=== PATIENT | female | born 1955 | race Caucasian/White ===

== ENCOUNTER 2016-12-10 00:30 | Emergency (ER) | payer OTHER ==
--- NOTE | 2016-12-10 02:54 | PDOC ---
History of Present Illness - History of Present Illness Initial Comments: 12/10/16 03:10 The patient is a 61 year old female, with a significant past medical history of asthma, diabetes, diverticulosis, pancreatitis, hypertension, hypercholesterolemia, anxiety, depression, who presents to the emergency department with intermittent chest pain starting at 8pm last night while she was at rest. The patient reports her pain was radiating from the epigastric region up to her throat and was associated with shortness of breath and nausea, but denies vomiting. The patient states she is compliant with all medications and reports taking one 81 mg aspirin prior to being seen in the ED and denies any pain currently. She denies headache and dizziness. She denies fever, chills, vomit, diaphoresis , diarrhea and constipation. She denies dysuria, frequency, urgency and hematuria. Allergies: NKDA Surgical Hx: TKR PCP - Dr. Duke <Eleanor Urbina - Last Filed: 12/10/16 05:06> - General History Source: Patient <Jeffrey Villalobos - Last Filed: 12/10/16 06:07> - General Stated Complaint: CHEST PAIN Time Seen by Provider: 12/10/16 02:51 Past History <Eleanor Urbina - Last Filed: 12/10/16 05:06> - Past Medical History Anemia: No Asthma: Yes Cancer: No Cardiac Disorders: No CVA: No COPD: No CHF: No DVT: No Dementia: No Diabetes: Yes Dialysis: No GI Disorders: Yes (diverticulitis, diverticulosis, PANCREATITIS.) Disorders: No HTN: Yes Hypercholesterolemia: Yes HIV: No Kidney Stones: No Liver Disease: Yes (fatty liver) Psychiatric Problems: Yes (anxiety, depression ) Suicide Attempt (Hx): No Seizures: No Thyroid Disease: No Lung CA: No - Surgical History Abdominal Surgery: No Cholecystectomy: Yes Orthopedic Surgery: Yes (left TKR) - Immunization History Immunization Up to Date: Yes - Psycho/Social/Smoking Cessation Hx Anxiety: Yes Suicidal Ideation: No Smoking Status: No Smoking History: Never smoked Have you smoked in the past 12 months: No Number of Cigarettes Smoked Daily: 0 If you are a former smoker, when did you quit?: 1994 Hx Alcohol Use: No Drug/Substance Use Hx: No Substance Use Type: Alcohol Hx Substance Use Treatment: No <Jeffrey Villalobos - Last Filed: 12/10/16 06:07> - Past Medical History Allergies/Adverse Reactions: Allergies Allergy/AdvReac Type Severity Reaction Status Date / Time No Known Allergies Allergy Verified 12/10/16 03:02 Home Medications: Ambulatory Orders Omeprazole 40 mg PO DAILY 11/24/11 Clonazepam [Klonopin -] 1 mg PO TID #10 tablet 08/03/14 Losartan/Hydrochlorothiazide [Losartan-Hctz 100-25 mg Tab] 1 each PO DAILY 09/05 Metformin HCl [Glucophage -] 500 mg PO BID 09/05/14 Calcium Carbonate/Vitamin D3 [Calcium 600-Vit D3 400 Tablet] 1 each PO BID 08/14 Diphenhydramine HCl [Benadryl -] 25 mg PO Q8H PRN #21 capsule 08/14/16 Fenofibrate Nanocrystallized [Fenofibrate] 145 mg PO DAILY 08/14/16 Fluconazole [Diflucan -] 150 mg PO ONCE #2 tablet 08/14/16 Lipase/Protease/Amylase [Creon Dr 36,000 Units Capsule] 1 each PO TID 08/14/16 Lurasidone HCl [Latuda -] 40 mg PO ASDIR 08/14/16 Multivitamin [Poly-Vitamin] 1 each PO ASDIR 08/14/16 Pravastatin Sodium [Pravachol (Nf)] 20 mg PO DAILY 08/14/16 Review of Systems - Review of Systems Able to Perform ROS?: Yes Comments:: 12/10/16 03:10 CONSTITUTIONAL: Absent: fever, chills, diaphoresis, generalized weakness, malaise, loss of appetite HEENT: Absent: rhinorrhea, nasal congestion, throat pain, throat swelling, difficulty swallowing, mouth swelling, ear pain, eye pain, visual Changes CARDIOVASCULAR: (+) chest pain, Absent: syncope, palpitations, irregular heart rate, lightheadedness, peripheral edema RESPIRATORY: (+) shortness of breath, Absent: cough, dyspnea with exertion, orthopnea, wheezing, stridor, hemoptysis GASTROINTESTINAL: (+) nausea, Absent: abdominal pain, abdominal distension,vomiting, diarrhea, constipation, melena, hematochezia GENITOURINARY: Absent: dysuria, frequency, urgency, hesitancy, hematuria, flank pain, genital pain MUSCULOSKELETAL: Absent: myalgia, arthralgia, joint swelling SKIN: Absent: rash, itching, pallor HEMATOLOGIC/IMMUNOLOGIC: Absent: easy bleeding, easy bruising, lymphadenopathy, frequent infections ENDOCRINE: Absent: unexplained weight gain, unexplained weight loss, heat intolerance, cold intolerance NEUROLOGIC: Absent: headache, focal weakness or paresthesias, dizziness, unsteady gait, seizure, mental status changes, bladder or bowel incontinence PSYCHIATRIC: Absent: anxiety, depression, suicidal or homicidal ideation, hallucinations. <Eleanor Urbina - Last Filed: 12/10/16 05:06> *Physical Exam - Vital Signs Last Vital Signs Temp Pulse Resp BP Pulse Ox 98.2 F 90 14 152/100 98 12/10/16 03:02 12/10/16 03:02 12/10/16 03:02 12/10/16 03:02 12/10/16 03:02 - Physical Exam Comments: 12/10/16 03:12 GENERAL: Well developed, well nourished. Awake and alert. No acute distress. HEENT: Normocephalic, atraumatic. PERRLA, EOMI. No conjunctival pallor. Sclera are non- icteric. Moist mucous membranes. Oropharynx is clear. NECK: Supple. Full ROM. No JVD. Carotid pulses 2+ and symmetric, without bruits. No thyromegaly. No lymphadenopathy. CARDIOVASCULAR: Regular rate and rhythm. No murmurs, rubs, or gallops. Distal pulses are 2+ and symmetric. PULMONARY: No evidence of respiratory distress. Lungs clear to auscultation bilaterally. No wheezing, rales or rhonchi. ABDOMINAL: Soft. Non-tender. Non-distended. No rebound or guarding. No organomegaly. Normoactive bowel sounds. MUSCULOSKELETAL Normal range of motion at all joints. No bony deformities or tenderness. No CVA tenderness. EXTREMITIES: No cyanosis. No clubbing. No edema. No calf tenderness. SKIN: Warm and dry. Normal capillary refill. No rashes. No jaundice. NEUROLOGICAL: Alert, awake, appropriate. Cranial nerves 2-12 intact. Normoreflexic in the upper and lower extremities. Normal speech. Toes are down-going bilaterally. Gait is normal without ataxia. PSYCHIATRIC: Cooperative. Good eye contact. Appropriate mood and affect. <Eleanor Urbina - Last Filed: 12/10/16 05:06> Heart Score/ECG Review - ECG Intrepretation Comment:: 12/10/16 05:06 ECG was read by Dr. Villalobos at 5:00 Impression: Normal sinus rhythm. Nonspecific ST and T wave abnormality. <Eleanor Urbina - Last Filed: 12/10/16 05:06> ED Treatment Course - LABORATORY CBC & Chemistry Diagram: 12/10/16 03:10 12/10/16 03:10 <Eleanor Urbina - Last Filed: 12/10/16 05:06> - LABORATORY CBC & Chemistry Diagram: 12/10/16 03:10 12/10/16 03:10 <Jeffrey Villalobos - Last Filed: 12/10/16 06:07> Medical Decision Making - Medical Decision Making 12/10/16 06:06 Dr. Villalobos: The scribe's documentation has been prepared under my direction and personally reviewed by me in its entirery. I confirm that the note above accurately reflects all work, treatment, procedures, and medical decision making performed by me. Cardiac enzymes x 2 are negative. Pt feels better. Will discharge pt. <Jeffrey Villalobos - Last Filed: 12/10/16 06:07> *DC/Admit/Observation/Transfer - Attestations Scribe Attestion: 12/10/16 03:12 Documentation prepared by Eleanor Urbina, acting as director medical economics for Jeffrey Villalobos MD <Eleanor Urbina - Last Filed: 12/10/16 05:06> - Discharge Dispostion Admit: No <Jeffrey Villalobos - Last Filed: 12/10/16 06:07> Diagnosis at time of Disposition: Chest pain - Discharge Dispostion Disposition: HOME Condition at time of disposition: Stable - Referrals Referrals: Araceli Duke MD [Primary Care Provider] - Timothy Espinal MD [Staff Physician] - - Patient Instructions Printed Discharge Instructions: DI for Chest Pain
[2016-12-10 03:04] VITALS: TEMP 98.2; BMI 39.1
[2016-12-10 03:25] LABS: BASOPHIL 0.8 % (0-2.0); EOSINOPHIL 2.2 % (0-4.5); MCHC 33.1 g/dl (32.0-36.0); MEAN CELL VOLUME 78.5 fl (80-96); MEAN PLT VOLUME 8.1 fl (7.5-11.1); NEUTROPHILS 79.4 % (42.8-82.8); PLATELET COUNT 234 K/MM3 (134-434); RDW 14.3 % (11.6-15.6); WHITE BLOOD COUNT 7.6 K/mm3 (4.0-10.0)
[2016-12-10 03:46] LABS: INR 1.18 (0.82-1.09)
[2016-12-10 04:01] LABS: ALBUMIN 3.5 g/dl (3.4-5.0); ANION GAP 13 (8-16); BILIRUBIN,TOTAL 0.5 mg/dL (0.2-1.0); CALCIUM 8.4 mg/dL (8.5-10.1); CO2 22 mmol/L (21-32); CREATININE 0.8 mg/dL (0.55-1.02); GLUCOSE,RANDOM 94 mg/dL (74-106); MAGNESIUM 1.9 mg/dL (1.8-2.4); SGOT/AST 14 U/L (15-37); SGPT/ALT 25 U/L (12-78); TOT PROT 6.3 g/dl (6.4-8.2)
[2016-12-10 04:04] LABS: ALK PHOS 53 U/L (45-117); TROPONIN I < 0.02 ng/ml (0.00-0.05)
[2016-12-10] MEDS ORDERED: NITROGLYCERIN 2% OINTMENT - 1GM PACKET TD ONE ×2 (04:59→05:02)
[2016-12-10 06:00] LABS: TROPONIN I < 0.02 ng/ml (0.00-0.05)
[2016-12-10 06:33] VITALS: BP 151/93; PULSE 87
--- NOTE | 2016-12-10 17:33 | EKG ---
Test Reason : Blood Pressure : / mmHG Vent. Rate : 096 BPM Atrial Rate : 096 BPM P-R Int : 172 ms QRS Dur : 088 ms QT Int : 358 ms P-R-T Axes : 003 014 007 degrees QTc Int : 452 ms NORMAL SINUS RHYTHM NONSPECIFIC ST AND T WAVE ABNORMALITY ABNORMAL ECG WHEN COMPARED WITH ECG OF 10-DEC-2016 02:53, NO SIGNIFICANT CHANGE WAS FOUND Confirmed by LESLIE ARAIZA MD ([id number]) on 12/10/2016 5:32:41 PM Referred By: Confirmed By:LESLIE ARAIZA MD
--- NOTE | 2016-12-10 17:33 | EKG ---
Test Reason : Blood Pressure : / mmHG Vent. Rate : 096 BPM Atrial Rate : 096 BPM P-R Int : 158 ms QRS Dur : 090 ms QT Int : 378 ms P-R-T Axes : -04 026 016 degrees QTc Int : 477 ms NORMAL SINUS RHYTHM NORMAL ECG WHEN COMPARED WITH ECG OF 17-JUN-2016 07:26, NO SIGNIFICANT CHANGE WAS FOUND Confirmed by LESLIE ARAIZA MD ([id number]) on 12/10/2016 5:32:49 PM Referred By: Confirmed By:LESLIE ARAIZA MD
== END 2016-12-10 06:33 | disposition home or self-care (01) ==
LOC: JER 00:30
DX: R07.89 Other chest pain (principal); I10 Essential (primary) hypertension; E11.9 Type 2 diabetes mellitus without complications; Z79.84 Long term (current) use of oral hypoglycemic drugs; E78.00 Pure hypercholesterolemia, unspecified; K85.90 Acute pancreatitis without necrosis or infection, unspecified; F41.8 Other specified anxiety disorders
CPT/HCPCS: 36415; 71010-TC; 80053; 82550; 83690; 83735; 83880; 84484; 85025; 85610; 93005; 93010; 99284-25

== ENCOUNTER 2017-10-08 11:33 | Emergency (ER) | payer OTHER ==
[2017-10-08 12:29] VITALS: BMI 34.7
--- NOTE | 2017-10-08 12:39 | PDOC ---
History of Present Illness - General History Source: Patient Exam Limitations: No Limitations - History of Present Illness Initial Comments: 10/08/17 13:15 The patient is a 62 year old female with a significant PMH of asthma, diabetes, diverticulitis, HTN, hyperlipidemia, anxiety, and depression who presents to the emergency department after being sent by Dr. Duke with lower abdominal, flank , back, and groin pain beginning approximately 1 week ago. The patient notes her pain is particularly worse around the left groin, left lower abdomen, and right lower back which has intermittently shot down her left leg. She also notes slightly blurry vision upon presentation. She denies any history of kidney stones. The patient denies chest pain, shortness of breath, headache and dizziness. Denies fever, chills, nausea, vomit, diarrhea and constipation. Denies dysuria, frequency, urgency and hematuria. Allergies: NKA Past surgical history: Total knee replacement. Cholecystectomy. Social history: No reported cigarette, alcohol, or drug use. PCP: Dr. Duke <Armen Cruz - Last Filed: 10/08/17 13:22> <Viviana Stephens - Last Filed: 10/08/17 18:39> - General Chief Complaint: Pain, Acute Stated Complaint: ABD, GROIN PAIN Time Seen by Provider: 10/08/17 12:38 Past History <Armen Cruz - Last Filed: 10/08/17 13:22> - Past Medical History Anemia: No Asthma: Yes Cancer: No Cardiac Disorders: No CVA: No COPD: No CHF: No DVT: No Dementia: No Diabetes: Yes Dialysis: No GI Disorders: Yes (diverticulitis, diverticulosis, PANCREATITIS.) Disorders: No HTN: Yes Hypercholesterolemia: Yes Kidney Stones: No Liver Disease: Yes (fatty liver) Psychiatric Problems: Yes (anxiety, depression ) Seizures: No Thyroid Disease: No Lung CA: No - Surgical History Abdominal Surgery: No Cholecystectomy: Yes Orthopedic Surgery: Yes (left TKR) - Immunization History Immunization Up to Date: Yes - Suicide/Smoking/Psychosocial Hx Smoking Status: No Smoking History: Never smoked Have you smoked in the past 12 months: No Number of Cigarettes Smoked Daily: 0 If you are a former smoker, when did you quit?: 30yrs Information on smoking cessation initiated: No Hx Alcohol Use: No Drug/Substance Use Hx: No Substance Use Type: Alcohol Hx Substance Use Treatment: No <Viviana Stephens - Last Filed: 10/08/17 18:39> - Past Medical History Allergies/Adverse Reactions: Allergies Allergy/AdvReac Type Severity Reaction Status Date / Time No Known Allergies Allergy Verified 10/08/17 12:24 Home Medications: Ambulatory Orders Omeprazole 40 mg PO DAILY 11/24/11 Metformin HCl [Glucophage -] 500 mg PO BID 09/05/14 Calcium Carbonate/Vitamin D3 [Calcium 600-Vit D3 400 Tablet] 1 each PO BID 08/14 Fenofibrate Nanocrystallized [Fenofibrate] 145 mg PO DAILY 08/14/16 Lurasidone HCl [Latuda -] 60 mg PO ASDIR 08/14/16 Pravastatin Sodium [Pravachol (Nf)] 20 mg PO DAILY 08/14/16 Bupropion HCl [Bupropion Xl] 150 mg PO DAILY 10/08/17 Cetirizine HCl 10 mg PO DAILY 10/08/17 Diazepam [Valium] 5 mg PO PRN 10/08/17 Fluticasone Prop 0.05% Nasal [Flonase -] 1 - 2 spray NS DAILY 10/08/17 Losartan Potassium 100 mg PO DAILY 10/08/17 Meloxicam 7.5 mg PO DAILY 10/08/17 Montelukast Na [Singulair -] 10 mg PO HS 10/08/17 Review of Systems - Review of Systems Able to Perform ROS?: Yes Comments:: 10/08/17 13:16 GENERAL/CONSTITUTIONAL: No fever or chills. No weakness. HEAD, EYES, EARS, NOSE AND THROAT: No change in vision. No ear pain or discharge. No sore throat. CARDIOVASCULAR: No chest pain or shortness of breath. RESPIRATORY: No cough, wheezing, or hemoptysis. GASTROINTESTINAL: No nausea, vomiting, diarrhea or constipation. GENITOURINARY: No dysuria, frequency, or change in urination. MUSCULOSKELETAL: (+) Lower flank, back, and groin pain. No joint pain. No neck or back pain. SKIN: No rash NEUROLOGIC: (+) Slightly blurry vision. No headache, vertigo, loss of consciousness, or change in strength. HEMATOLOGIC/LYMPHATIC: No anemia, easy bleeding, or history of blood clots. ALLERGIC/IMMUNOLOGIC: No hives or skin allergy. <rAmen Cruz - Last Filed: 10/08/17 13:22> *Physical Exam - Vital Signs Last Vital Signs Temp Pulse Resp BP Pulse Ox 98.5 F 77 16 152/95 98 10/08/17 12:25 10/08/17 12:25 10/08/17 12:25 10/08/17 12:25 10/08/17 12:25 - Physical Exam Comments: 10/08/17 13:22 GENERAL: (+) Appears uncomfortable. (+) Tearful. Awake, alert, and fully oriented. HEAD: No signs of trauma EYES: PERRLA, EOMI, sclera anicteric, conjunctiva clear ENT: Auricles normal inspection, hearing grossly normal, nares patent, oropharynx clear without exudates. Moist mucosa NECK: Normal ROM, supple, no lymphadenopathy, JVD, or masses LUNGS: Breath sounds equal, clear to auscultation bilaterally. No wheezes, and no crackles HEART: Regular rate and rhythm, normal S1 and S2, no murmurs, rubs or gallops ABDOMEN: (+) LLQ tenderness. Soft, normoactive bowel sounds. No guarding, no rebound. No masses BACK: (+) Right side tenderness. EXTREMITIES: Normal range of motion, no edema. No clubbing or cyanosis. No cords, erythema, or tenderness NEUROLOGICAL: Cranial nerves II through XII grossly intact. Normal speech, normal gait SKIN: Warm, Dry, normal turgor, no rashes or lesions noted. <Armen Cruz - Last Filed: 10/08/17 13:22> - Vital Signs Last Vital Signs Temp Pulse Resp BP Pulse Ox 98.5 F 77 16 152/95 98 10/08/17 12:25 10/08/17 12:25 10/08/17 12:25 10/08/17 12:25 10/08/17 12:25 <Viviana Stephens - Last Filed: 10/08/17 18:39> ED Treatment Course - LABORATORY CBC & Chemistry Diagram: 10/08/17 12:51 10/08/17 12:51 - ADDITIONAL ORDERS Additional order review: 10/08/17 12:51 RBC 5.00 MCV 78.1 L MCHC 32.0 RDW 15.7 H MPV 7.7 Neutrophils % 68.9 Lymphocytes % 15.4 D Monocytes % 12.3 H Eosinophils % 2.8 Basophils % 0.6 - Medications Given in the ED: ED Medications Discontinued Medications Generic Name Dose Route Start Last Admin Trade Name Nan PRN Reason Stop Dose Admin Morphine Sulfate 4 mg 10/08/17 12:55 10/08/17 13:14 Morphine Injection - IVPUSH 10/08/17 12:56 4 mg ONCE ONE Administration <Armen Cruz - Last Filed: 10/08/17 13:22> - LABORATORY CBC & Chemistry Diagram: 10/08/17 12:51 10/08/17 12:51 <Viviana Stephens - Last Filed: 10/08/17 18:39> Medical Decision Making - Medical Decision Making 10/08/17 18:39 CT negative. Patient tolerated PO challenge. Stable for DC home. <Viviana Stephens - Last Filed: 10/08/17 18:39> *DC/Admit/Observation/Transfer - Attestations Scribe Attestion: 10/08/17 13:17 Documentation prepared by Armen Cruz, acting as medical service technician for Viviana Stephens MD. <Armen Cruz - Last Filed: 10/08/17 13:22> - Discharge Dispostion Admit: No <Viviana Stephens - Last Filed: 10/08/17 18:39> Diagnosis at time of Disposition: Abdominal pain Qualifiers: Abdominal location: left lower quadrant Qualified Code(s): R10.32 - Left lower quadrant pain - Discharge Dispostion Disposition: HOME Condition at time of disposition: Stable - Referrals Referrals: Araceli Duke MD [Primary Care Provider] - - Patient Instructions Printed Discharge Instructions: DI for Abdominal Pain-Adult
[2017-10-08] MEDS ORDERED: morphine CARPU-JECT 4 MG/1 ML DISP.SYRIN IVPUSH ONE (12:55)
[2017-10-08] MEDS ORDERED: SODIUM CHLORIDE 1,000 ML IV STA (12:55)
[2017-10-08 13:01] LABS: BASO % 0.6 % (0-2.0); EOS % 2.8 % (0-4.5); HEMATOCRIT 39.1 % (32.4-45.2); HEMOGLOBIN 12.5 GM/dL (10.7-15.3); LYMPH % 15.4 % (8-40); MEAN CELL VOLUME 78.1 fl (80-96); MEAN PLT VOLUME 7.7 fl (7.5-11.1); MONO % 12.3 % (3.8-10.2); NEUT % 68.9 % (42.8-82.8); PLATELET COUNT 247 K/MM3 (134-434); RDW 15.7 % (11.6-15.6); WHITE BLOOD COUNT 4.9 K/mm3 (4.0-10.0)
[2017-10-08] MEDS ORDERED: MORPHINE SULFATE 10 MG/1 ML *VIAL ONE (13:05)
[2017-10-08 13:15] LABS: INR 1.06 (0.82-1.09)
[2017-10-08 13:31] LABS: ALBUMIN 4.1 g/dl (3.4-5.0); ANION GAP 8 (8-16); BILIRUBIN,TOTAL 0.6 mg/dL (0.2-1.0); BLOOD UREA NITROGEN 12 mg/dL (7-18); CHLORIDE 107 mmol/L (98-107); CO2 26 mmol/L (21-32); CREATININE 0.9 mg/dL (0.55-1.02); GLUCOSE,RANDOM 80 mg/dL (74-106); LIPASE 90 U/L (73-393); POTASSIUM 3.8 mmol/L (3.5-5.1); SGOT/AST 18 U/L (15-37); SGPT/ALT 24 U/L (12-78); SODIUM 141 mmol/L (136-145)
[2017-10-08 13:32] LABS: ALK PHOS 34 U/L (45-117)
[2017-10-08 14:11] LABS: URINE APPEARANCE CLEAR; URINE BILIRUBIN NEGATIVE (NEGATIVE); URINE BLOOD NEGATIVE (NEGATIVE); URINE COLOR STRAW; URINE GLUCOSE (UA) NEGATIVE (NEGATIVE); URINE KETONE NEGATIVE (NEGATIVE); URINE LEUK ESTERASE NEGATIVE (NEGATIVE); URINE NITRITE NEGATIVE (NEGATIVE); URINE PROTEIN NEGATIVE (NEGATIVE); URINE UROBILINOGEN NEGATIVE mg/dL (0.2-1.0)
[2017-10-08 19:15] VITALS: BP 126/77; PULSE 68; TEMP 98.2
== END 2017-10-08 19:00 | disposition home or self-care (01) ==
LOC: JER 11:33
DX: R11.11 Vomiting without nausea (principal); R50.9 Fever, unspecified
CPT/HCPCS: 36415; 74177-TC; 80053; 81003; 83690; 85025; 85610; 87086; 99283-25

== ENCOUNTER 2018-12-29 14:03 | Emergency (ER) | payer OTHER ==
--- NOTE | 2018-12-29 14:15 | PDOC ---
Rapid Medical Evaluation Chief Complaint: Pain Time Seen by Provider: 12/29/18 14:12 Medical Evaluation: Allergies Allergy/AdvReac Type Severity Reaction Status Date / Time No Known Allergies Allergy Verified 10/08/17 12:24 12/29/18 14:13 I did a brief in person evaluation on this patient. CC: Epigastric pain HPI: Pt is a 63 YO female who states she has a hx of DM who states she has had epigastric "burning" x 1 week. Pt denies CV hx. PE: Skin: Clear Lungs: Clear Heart:RRR Abd: soft, non tender MS: Moves all extremities without difficulty Neuro: alert Psych: appropriate affect. I have ordered: Cardiac and Abd protocol Pt will proceed to main ED for further evaluation. Discharge Disposition - Diagnosis Abdominal pain Qualifiers: Abdominal location: epigastric Qualified Code(s): R10.13 - Epigastric pain - Referrals - Patient Instructions - Post Discharge Activity
[2018-12-29 14:17] VITALS: TEMP 99; BMI 38.0
[2018-12-29 14:59] LABS: BASO % 0.2 % (0-2.0); EOS % 0.8 % (0-4.5); HEMATOCRIT 40.5 % (32.4-45.2); HEMOGLOBIN 13.2 GM/dL (10.7-15.3); LYMPH % 7.3 % (8-40); MCH 26.5 pg (25.7-33.7); MCHC 32.6 g/dl (32.0-36.0); MEAN CELL VOLUME 81.2 fl (80-96); MEAN PLT VOLUME 7.9 fl (7.5-11.1); MONO % 4.2 % (3.8-10.2); NEUT % 87.5 % (42.8-82.8); PLATELET COUNT 298 K/MM3 (134-434); RBC 4.98 M/mm3 (3.60-5.2); RDW 15.1 % (11.6-15.6)
[2018-12-29 15:01] LABS: EPI CELLS 11.5 /HPF (0-5/HPF); PH,URINE 5.5 (5.0-8.0); URINE APPEARANCE CLOUDY; URINE BACTERIA 449.3 /hpf (NEGATIVE); URINE BILIRUBIN NEGATIVE (NEGATIVE); URINE CASTS 29 /lpf (0-8); URINE COLOR DK YELLOW; URINE GLUCOSE (UA) NEGATIVE (NEGATIVE); URINE KETONE TRACE (NEGATIVE); URINE LEUK ESTERASE NEGATIVE (NEGATIVE); URINE NITRITE NEGATIVE (NEGATIVE); URINE PROTEIN TRACE (NEGATIVE); URINE RBC 2 /hpf (0-4); URINE WBC 9 /hpf (0-5)
[2018-12-29 15:31] LABS: ALBUMIN 3.8 g/dl (3.4-5.0); ALK PHOS 33 U/L (45-117); ANION GAP 8 MMOL/L (8-16); BILIRUBIN,TOTAL 0.7 mg/dL (0.2-1); BLOOD UREA NITROGEN 13 mg/dL (7-18); CHLORIDE 111 mmol/L (98-107); CO2 22 mmol/L (21-32); CREATININE 0.8 mg/dL (0.55-1.3); GLUCOSE,RANDOM 141 mg/dL (74-106); LIPASE 86 U/L (73-393); POTASSIUM 3.7 mmol/L (3.5-5.1); SGOT/AST 23 U/L (15-37); SGPT/ALT 41 U/L (13-61); SODIUM 141 mmol/L (136-145); TOT PROT 7.1 g/dl (6.4-8.2)
[2018-12-29] MEDS ORDERED: FAMOTIDINE 20 MG/50 ML IVPB 20 MG/50 ML MG IVPB ONE ×2 (15:35→15:38)
[2018-12-29] MEDS ORDERED: ONDANSETRON 4 MG/2 ML VIAL IVPUSH PRN (15:35)
[2018-12-29] MEDS ORDERED: ONDANSETRON 4 MG/2 ML VIAL ONE (15:38)
--- NOTE | 2018-12-29 15:53 | PDOC ---
History of Present Illness - General Chief Complaint: Pain Stated Complaint: HYPERTENSION Time Seen by Provider: 12/29/18 14:12 History Source: Patient Exam Limitations: No Limitations - History of Present Illness Initial Comments: 12/29/18 15:47 63 y/o female with PMH of DM, HTN presents to the ED with complaints of high blood pressure, palpitations and epigastric pain x1 week. Patient states that she has been checking her pressures on her home monitor and they have been high - with her systolics in the 160's and the diastolics in the 100's. She states that abdominal pain is burning in nature- she does have a GI history (has IBS in addition to diverticulitis in the past), and she follows up with Dr. Segundo every year. She does not say that this is similar to her GERD symptoms nor does she feel that she is having an attack of diverticulitis. She did lose her son one week ago and her anxiety is very bad. She also endorses having a few episodes of diarrhea. She admits to having not taken her blood pressure meds consistently the past few days. She denies any chest pains, nausea/vomiting but does have some associated shortness of breath. Also, when her pressure is high she notes that she gets a headache in addition to blurred vision with numbness and tingling in her arms and legs. She denies any recent travel, sick contacts or recent illnesses. 12/29/18 15:54 Timing/Duration: getting worse Severity: moderate Associated Symptoms: reports: diaphoresis, shortness of breath. denies: chest pain Past History - Travel Traveled outside of the country in the last 30 days: No Close contact w/someone who was outside of country & ill: No - Past Medical History Allergies/Adverse Reactions: Allergies Allergy/AdvReac Type Severity Reaction Status Date / Time No Known Allergies Allergy Verified 10/08/17 12:24 Home Medications: Ambulatory Orders metFORMIN HCL [Glucophage -] 500 mg PO BID 09/05/14 Fenofibrate Nanocrystallized [Fenofibrate] 145 mg PO HS 08/14/16 Lurasidone HCl [Latuda -] 60 mg PO DAILY 08/14/16 Pravastatin Sodium [Pravachol (Nf)] 40 mg PO HS 08/14/16 Bupropion HCl [Bupropion Xl] 150 mg PO DAILY 10/08/17 Cetirizine HCl 10 mg PO DAILY 10/08/17 Diazepam [Valium] 5 mg PO PRN 10/08/17 Losartan Potassium 100 mg PO DAILY 10/08/17 Montelukast Na [Singulair -] 10 mg PO HS 10/08/17 Gabapentin 200 mg PO TID 12/29/18 Anemia: No Asthma: Yes Cancer: No Cardiac Disorders: No CVA: No COPD: No CHF: No DVT: No Dementia: No Diabetes: Yes Dialysis: No GI Disorders: Yes (diverticulitis, diverticulosis, PANCREATITIS.) Disorders: No HTN: Yes Hypercholesterolemia: Yes Kidney Stones: No Liver Disease: Yes (fatty liver) Psychiatric Problems: Yes (anxiety, depression ) Seizures: No Thyroid Disease: No Lung CA: No - Surgical History Abdominal Surgery: No Cholecystectomy: Yes Orthopedic Surgery: Yes (left TKR) - Family Disease History Family Disease History: Diabetes: Mother, Heart Disease: Father - Immunization History Immunization Up to Date: Yes - Suicide/Smoking/Psychosocial Hx Smoking Status: No Smoking History: Unknown if ever smoked Have you smoked in the past 12 months: No Number of Cigarettes Smoked Daily: 0 If you are a former smoker, when did you quit?: 30yrs Information on smoking cessation initiated: No Hx Alcohol Use: No Drug/Substance Use Hx: No Substance Use Type: Alcohol Hx Substance Use Treatment: No Review of Systems - Review of Systems Able to Perform ROS?: Yes Is the patient limited [place]an proficient: No Constitutional: Yes: Diaphoresis HEENTM: Yes: Blurred Vision Respiratory: Yes: Shortness of Breath Cardiac (ROS): Yes: Palpitations. No: Chest Pain ABD/GI: Yes: Other (epigastric pain and burnigng ) : No: Burning, Dysuria Neurological: Yes: Headache, Numbness, Tingling Psychiatric: Yes: Anxiety *Physical Exam - Vital Signs Last Vital Signs Temp Pulse Resp BP Pulse Ox 99.0 F 99 H 16 146/95 99 12/29/18 14:14 12/29/18 14:14 12/29/18 14:14 12/29/18 14:14 12/29/18 14:14 - Physical Exam General Appearance: Yes: Other (tearful) Neck: positive: Normal Thyroid Respiratory/Chest: positive: Lungs Clear, Normal Breath Sounds Cardiovascular: positive: Regular Rhythm, Regular Rate, S1, S2 Gastrointestinal/Abdominal: positive: Normal Bowel Sounds, Tender (epigastric tenderness ), Flat Musculoskeletal: negative: CVA Tenderness Integumentary: positive: Warm Neurologic: positive: Fully Oriented, Alert ED Treatment Course - LABORATORY CBC & Chemistry Diagram: 12/29/18 14:34 12/29/18 14:35 - ADDITIONAL ORDERS Additional order review: Laboratory Results 12/29/18 12/29/18 14:35 14:35 Sodium 141 Potassium 3.7 Chloride 111 H Carbon Dioxide 22 Anion Gap 8 BUN 13 Creatinine 0.8 Creat Clearance w eGFR 72.68 Random Glucose 141 H Calcium 9.0 Total Bilirubin 0.7 AST 23 ALT 41 Alkaline Phosphatase 33 L Creatine Kinase 68 Troponin I < 0.02 Total Protein 7.1 Albumin 3.8 Lipase 86 Urine Color Dk yellow Urine Appearance Cloudy Urine pH 5.5 Ur Specific Bowers 1.022 Urine Protein Trace Urine Glucose (UA) Negative Urine Ketones Trace H Urine Blood Trace Urine Nitrite Negative Urine Bilirubin Negative Urine Urobilinogen 1.0 Ur Leukocyte Esterase Negative Urine WBC (Auto) 9 Urine RBC (Auto) 2 Urine Casts (Auto) 29 U Pathogenic Cast Auto None seen U Epithel Cells (Auto) 11.5 Urine Bacteria (Auto) 449.3 12/29/18 14:34 RBC 4.98 MCV 81.2 MCHC 32.6 RDW 15.1 MPV 7.9 Neutrophils % 87.5 H D Lymphocytes % 7.3 L D Monocytes % 4.2 Eosinophils % 0.8 Basophils % 0.2 Medical Decision Making - Medical Decision Making 12/29/18 16:02 cbc/cmp/lipase/cardiac profile ekg pepcid/zofran trop negative X2 ativan 2mg X2 pt very anxious 12/29/18 18:38 *DC/Admit/Observation/Transfer Diagnosis at time of Disposition: Anxiety, Epigastric pain Abdominal pain Qualifiers: Abdominal location: epigastric Qualified Code(s): R10.13 - Epigastric pain - Discharge Dispostion Disposition: HOME Condition at time of disposition: Stable - Referrals Referrals: Araceli Duke MD [Primary Care Provider] - - Patient Instructions Printed Discharge Instructions: DI for Anxiety -- Adult Additional Instructions: please take the medication melatonin over the counter before sleep please follow up with Dr Sindy Duke within one week please follow up with your therapist and psychiatrist within one week if you begin to have worsening or concerning symptoms please return to the emergency room immediately - Post Discharge Activity - Attestations Physician Attestion: 12/29/18 19:07 [place] Pfeiffer
[2018-12-29] MEDS ORDERED: ALPRAZolam 2 MG TABLET PO ONE (16:23)
[2018-12-29] MEDS ORDERED: MAG HYDROX/AL HYDROX/SIMETH 30 ML UNIT-DOSE CUP PO ONE (16:23)
[2018-12-29] MEDS ORDERED: ACETAMINOPHEN 325 MG TABLET (FP) PO ONE (17:01)
[2018-12-29] MEDS ORDERED: MAG HYDROX/AL HYDROX/SIMETH 30 ML UNIT-DOSE CUP ONE (17:31)
[2018-12-29] MEDS ORDERED: LORazepam 2 MG/ML SDV VIAL ONE ×2 (17:31→18:53)
[2018-12-29] MEDS ORDERED: ACETAMINOPHEN 325 MG TABLET (FP) ONE (17:31)
--- NOTE | 2018-12-29 17:36 | PDOC ---
Documentation entered by Eleanor Urbina SCRIBE, acting as scribe for Augstín Banerjee MD. Agustín Banerjee MD: This documentation has been prepared by the Ciara barrow Amanda, SCRIBE, under my direction and personally reviewed by me in its entirety. I confirm that the documentation accurately reflects all work, treatment, procedures, and medical decision making performed by me. Attending Attestation - Resident Resident Name: KentrellVenice - ED Attending Attestation I have performed the following: I have examined & evaluated the patient, The case was reviewed & discussed with the resident, I agree w/resident's findings & plan, Exceptions are as noted - HPI HPI: 12/29/18 16:12 The patient is a 63 year old female with a significant past medical history of DM, HTN and anxiety who presents to the ED with complaints of high blood pressure, palpitations, and anxiety for a week. The patient states her son last week. Since then, she has been crying and feeling very anxious. She states she has been monitoring her BP at home and has found it to be elevated. She states she has not been taking her BP medications over the past few days. Pt also endorses epigastric pain that feels like a burning sensation. Denies CP/SOB. GI: Dr. Segundo - Physicial Exam PE: 12/29/18 17:34 GENERAL: + Tearful, Awake, alert, and fully oriented, in no acute distress. HEAD: No signs of trauma EYES: PERRLA, EOMI, sclera anicteric, conjunctiva clear ENT: Auricles normal inspection, hearing grossly normal, nares patent, oropharynx clear without exudates. Moist mucosa NECK: Nontender, no stepoffs, Normal ROM, supple, no lymphadenopathy, JVD, or masses LUNGS: Breath sounds equal, clear to auscultation bilaterally. No wheezes, and no crackles HEART: Regular rate and rhythm, normal S1 and S2, no murmurs, rubs or gallops ABDOMEN: Soft, nontender, normoactive bowel sounds. No guarding, no rebound. No masses EXTREMITIES: Normal range of motion, no edema. No clubbing or cyanosis. No cords, erythema, or tenderness NEUROLOGICAL: Cranial nerves II through XII intact. 5/5 strength and sensation in all extremities, Normal speech, normal gait, normal cerebellar function SKIN: Warm, Dry, normal turgor, no rashes or lesions noted. - Medical Decision Making 12/29/18 17:34 63 F with anxiety, palpitations, and elevated BP at home. Likely acute stress reaction to son's 1 week ago. Pt with nonischemic EKG but will r/o ACS with serial trops. Pt's epigastric pain likely gastritis, pt with benign exam in ED. - Labs, trop - GI cocktail - Ativan 2mg (pt takes valium 5mg PO TID) 12/29/18 18:31 Labs wnl, trop negative x2 Pt reassessed - now feeling much better after ativan Pt denies any symptoms at this time Pt is well appearing, with normal vitals. Clinically stable for DC at this time. I discussed the physical exam findings, ancillary test results and final diagnoses with the patient. I answered all of the patient's questions. The patient was satisfied with the care received and felt comfortable with the discharge plan and treatment plan. The patient agrees to follow up with the primary care physician within 24-72 hours.
[2018-12-29] MEDS ORDERED: LORazepam 2 MG/ML SDV VIAL IVPUSH ONE (18:31)
[2018-12-29 18:58] VITALS: BP 132/82; PULSE 85
--- NOTE | 2018-12-30 10:27 | EKG ---
Test Reason : Blood Pressure : / mmHG Vent. Rate : 095 BPM Atrial Rate : 095 BPM P-R Int : 144 ms QRS Dur : 084 ms QT Int : 368 ms P-R-T Axes : 006 034 029 degrees QTc Int : 462 ms NORMAL SINUS RHYTHM NONSPECIFIC ST ABNORMALITY ABNORMAL ECG WHEN COMPARED WITH ECG OF 10-DEC-2016 05:00, NONSPECIFIC T WAVE ABNORMALITY NO LONGER EVIDENT IN ANTERIOR LEADS Confirmed by HAMMAD RING, ASAEL ([id number]) on 12/30/2018 10:26:52 AM Referred By: Confirmed By:ASAEL CUEVA MD
== END 2018-12-29 19:13 | disposition home or self-care (01) ==
LOC: JER 14:03
PROC: 3E033GC Introduction of Other Therapeutic Substance into Peripheral Vein, Percutaneous Approach (ICD-10-PCS; principal; 2018-12-29)
PROC: 3E033GC Introduction of Other Therapeutic Substance into Peripheral Vein, Percutaneous Approach (ICD-10-PCS; 2018-12-29)
PROC: 3E033NZ Introduction of Analgesics, Hypnotics, Sedatives into Peripheral Vein, Percutaneous Approach (ICD-10-PCS; 2018-12-29)
PROC: 3E033NZ Introduction of Analgesics, Hypnotics, Sedatives into Peripheral Vein, Percutaneous Approach (ICD-10-PCS; 2018-12-29)
DX: F41.9 Anxiety disorder, unspecified (principal); R10.13 Epigastric pain; I10 Essential (primary) hypertension; E11.9 Type 2 diabetes mellitus without complications; Z79.84 Long term (current) use of oral hypoglycemic drugs; E78.00 Pure hypercholesterolemia, unspecified; Z63.4 Disappearance and death of family member; Z87.19 Personal history of other diseases of the digestive system
CPT/HCPCS: 36415; 80053; 81003; 82550; 83690; 84484; 85025; 93005; 93010; 96365; 96375; 96376; 99283-25

== ENCOUNTER 2019-05-07 17:47 | Emergency (ER) | payer OTHER ==
--- NOTE | 2019-05-07 17:58 | PDOC ---
Rapid Medical Evaluation Medical Evaluation: Allergies Allergy/AdvReac Type Severity Reaction Status Date / Time No Known Allergies Allergy Verified 10/08/17 12:24 05/07/19 17:56 I have performed a brief in-person evaluation of this patient. The patient presents with a chief complaint of: Lower back pain. Fell onto back several weeks ago and was having some back pain then but Friday pain worsened. Pain not improved w/ meds. H/o chronic LBP, fibromyalgia, anxiety, depression, diverticulitis, HTN, DM Pertinent physical exam findings:stephy very uncomfortable here but stable I have ordered the following:nothing The patient will proceed to the ED for further evaluation. Discharge Disposition - Diagnosis Lower back pain Qualifiers: Chronicity: acute Back pain laterality: unspecified Sciatica presence: without sciatica Qualified Code(s): M54.5 - Low back pain - Referrals - Patient Instructions - Post Discharge Activity
[2019-05-07 18:03] VITALS: BP 134/74; PULSE 95; TEMP 98.5; BMI 36.6
[2019-05-07] MEDS ORDERED: KETOROLAC TROMETHAMINE 60 MG/2 ML VIAL IM ONE (18:32)
[2019-05-07] MEDS ORDERED: KETOROLAC TROMETHAMINE 60 MG/2 ML VIAL ONE (18:35)
--- NOTE | 2019-05-07 18:38 | PDOC ---
History of Present Illness - General Chief Complaint: Back Pain Stated Complaint: BACK PAIN Time Seen by Provider: 05/07/19 17:58 History Source: Patient Exam Limitations: No Limitations - History of Present Illness Initial Comments: 05/07/19 18:36 She states slipped and fell down an entire flight of stairs approximately 2 weeks ago on her bottom and back sustaining severe back injury and pain. States was swollen and black and blue but chose not to be evaluated until today. States was and has remained severely painful has used Naprosyn with minimal resolved. Patient suffers from fibromyalgia and some neuropathies and tried gabapentin with minimal relief. Denies changes in bowel or bladder, denies any hematuria or dark coloration to her urine. Denies head injury, denies any vaginal drainage patient also reports a blister to the lateral aspect of her left mid posterior foot due to friction rub from a shoe. States incident occurred approximately 4 days ago and blister has remained painful and swollen Occurred: reports: last week, other Severity: reports: moderate, severe Pain Location: reports: back Past History - Past Medical History Allergies/Adverse Reactions: Allergies Allergy/AdvReac Type Severity Reaction Status Date / Time No Known Allergies Allergy Verified 05/07/19 17:59 Home Medications: Ambulatory Orders metFORMIN HCL [Glucophage -] 500 mg PO BID 09/05/14 Fenofibrate Nanocrystallized [Fenofibrate] 145 mg PO HS 08/14/16 Lurasidone HCl [Latuda -] 60 mg PO DAILY 08/14/16 Pravastatin Sodium [Pravachol (Nf)] 40 mg PO HS 08/14/16 Bupropion HCl [Bupropion Xl] 150 mg PO DAILY 10/08/17 Cetirizine HCl 10 mg PO DAILY 10/08/17 Diazepam [Valium] 5 mg PO PRN 10/08/17 Losartan Potassium 100 mg PO DAILY 10/08/17 Montelukast Na [Singulair -] 10 mg PO HS 10/08/17 Gabapentin 200 mg PO TID 12/29/18 Lidocaine 5% Patch [Lidoderm -] 1 patch TP DAILY #30 patch 05/07/19 Anemia: No Asthma: Yes Cancer: No Cardiac Disorders: No CVA: No COPD: No CHF: No DVT: No Dementia: No Diabetes: Yes (NIDM) Dialysis: No GI Disorders: Yes (diverticulitis, diverticulosis, PANCREATITIS.) Disorders: No HTN: Yes Hypercholesterolemia: Yes Kidney Stones: No Liver Disease: Yes (fatty liver) Psychiatric Problems: Yes (anxiety, depression ) Seizures: No Thyroid Disease: No Lung CA: No Other medical history: FIBROMYALGIA - Surgical History Abdominal Surgery: No Cholecystectomy: Yes Orthopedic Surgery: Yes (left TKR) - Family Disease History Family Disease History: Diabetes: Mother, Heart Disease: Father - Immunization History Immunization Up to Date: Yes - Suicide/Smoking/Psychosocial Hx Smoking Status: No Smoking History: Former smoker Have you smoked in the past 12 months: No Number of Cigarettes Smoked Daily: 0 If you are a former smoker, when did you quit?: 25YRS Information on smoking cessation initiated: No Hx Alcohol Use: No Drug/Substance Use Hx: No Substance Use Type: Alcohol Hx Substance Use Treatment: No Trauma Specific PMHX - Complaint Specific PMHX Back Injury: No Neck Injury: No *Physical Exam - Vital Signs Last Vital Signs Temp Pulse Resp BP Pulse Ox 98.5 F 95 H 17 134/74 98 05/07/19 17:59 05/07/19 17:59 05/07/19 17:59 05/07/19 17:59 05/07/19 17:59 - Physical Exam General Appearance: Yes: Nourished, Appropriately Dressed, Apparent Distress, Moderate Distress, Severe Distress HEENT: positive: JENNY, Normal ENT Inspection, TMs Normal, Pharynx Normal Neck: positive: Tender, Supple Respiratory/Chest: positive: Lungs Clear, Normal Breath Sounds Gastrointestinal/Abdominal: positive: Soft Musculoskeletal: positive: Normal Inspection (N, ecchymoses, abrasion or contusion is noted on lumbar or sacral spine areas the patient points to injury and tenderness.), Muscle Spasm. negative: CVA Tenderness, Vertebral Tenderness Extremity: positive: Normal Capillary Refill, Tender, Swelling, Other (with a large fluid-filled bullae to the lateral aspect of her left mid foot dorsal side motion of toes, has mild tenderness). negative: Normal Inspection, Normal Range of Motion Integumentary: positive: Normal Color, Dry, Warm. negative: Ecchymosis, Bruising Neurologic: positive: engineer/conductor II-XII NML intact, Fully Oriented, Alert, Normal Response ED Treatment Course - RADIOLOGY Radiology Studies Ordered: Category Date Time Status SPINE-LUMBAR SACRAL [RAD] Stat Radiology 05/07/19 18:30 Ordered *DC/Admit/Observation/Transfer Diagnosis at time of Disposition: Lower back pain Qualifiers: Chronicity: acute Back pain laterality: unspecified Sciatica presence: without sciatica Qualified Code(s): M54.5 - Low back pain - Discharge Dispostion Disposition: HOME Condition at time of disposition: Stable - Prescriptions Prescriptions: Lidocaine 5% Patch [Lidoderm -] 1 patch TP DAILY #30 patch - Referrals Referrals: Araceli Duke MD [Primary Care Provider] - 2 Days Stephen Draper MD [Staff Physician] - 2 Days - Patient Instructions Printed Discharge Instructions: DI for Low Back Pain, DI for Blisters Additional Instructions: Thank you for choosing [facility]. It was a pleasure taking care of you. You may take Motrin 600 mg every 6 hours by mouth as needed for mild to moderate pain. Take Motrin with food. Take Valium as needed for muscle spams. This medication can make you drowsy Wear lidocaine patch for pain. Take it off after 12 hours. Recommend warm compresses Avoid wearing tight shoes to prevent further rubbing of blister. Follow-up in podiatry clinic for evaluation Also follow-up with your regular doctor and consider physical therapy Return to the Emergency Department if your symptoms worsen or persist, you have fever, shortness of breath, chest pain, severe abdominal pain, vomiting, weakness of extremities (arms and/or legs), numbness around groin, unable to control bowel/bladder movements or other concerning symptoms. - Post Discharge Activity
[2019-05-07 19:28] LABS: URINE APPEARANCE Error; URINE BILIRUBIN NEGATIVE (NEGATIVE); URINE COLOR YELLOW; URINE GLUCOSE (UA) NEGATIVE (NEGATIVE); URINE KETONE NEGATIVE (NEGATIVE); URINE LEUK ESTERASE NEGATIVE (NEGATIVE); URINE NITRITE NEGATIVE (NEGATIVE); URINE PROTEIN NEGATIVE (NEGATIVE); URINE UROBILINOGEN 0.2 mg/dL (0.2-1.0)
[2019-05-07] MEDS ORDERED: LIDOCAINE 5% TOPICAL PATCH TP ONE (20:24)
[2019-05-07] MEDS ORDERED: LIDOCAINE 5% TOPICAL PATCH ONE (20:29)
--- NOTE | 2019-05-07 20:34 | PDOC ---
*Physical Exam - Vital Signs Last Vital Signs Temp Pulse Resp BP Pulse Ox 98.5 F 95 H 17 134/74 98 05/07/19 17:59 05/07/19 17:59 05/07/19 17:59 05/07/19 17:59 05/07/19 17:59 ED Treatment Course - ADDITIONAL ORDERS Additional order review: Laboratory Results 05/07/19 19:18 Urine Color Yellow Urine Appearance Error Urine pH 5.0 Ur Specific [place] 1.028 Urine Protein Negative Urine Glucose (UA) Negative Urine Ketones Negative Urine Blood Negative Urine Nitrite Negative Urine Bilirubin Negative Urine Urobilinogen 0.2 Ur Leukocyte Esterase Negative - Medications Given in the ED: ED Medications Discontinued Medications Generic Name Dose Route Start Last Admin Trade Name Freq PRN Reason Stop Dose Admin Ketorolac Tromethamine 60 mg 05/07/19 18:32 05/07/19 18:36 Toradol Injection - IM 05/07/19 18:33 60 mg ONCE ONE Administration Lidocaine 1 patch 05/07/19 20:24 05/07/19 20:28 Lidoderm Patch - TP 05/07/19 20:25 1 patch ONCE ONE Administration Medical Decision Making - Medical Decision Making patient signed out to me by EDUARDO Allan pending results of CT L spine CT L spine shows no fracture; only notable for degenerative disc changes; also incidental noting of retrocaval cyst Findings d/w patient and her grandson; given copy of reports of CT Lidocaine patch applied and also given Valium to help relax muscles (patient is already taking valium at home and has the medication at home) Regarding the blister along lateral aspect of L heel, was d/w Dr. Martinez - does not recommend draining it Site was covered with gauze; will refer to podiatry regarding this 05/07/19 20:34 *DC/Admit/Observation/Transfer Diagnosis at time of Disposition: Lower back pain Qualifiers: Chronicity: acute Back pain laterality: unspecified Sciatica presence: without sciatica Qualified Code(s): M54.5 - Low back pain - Discharge Dispostion Disposition: HOME Condition at time of disposition: Stable Decision to Admit order: No - Prescriptions Prescriptions: Lidocaine 5% Patch [Lidoderm -] 1 patch TP DAILY #30 patch - Referrals Referrals: Araceli Duke MD [Primary Care Provider] - 2 Days Stephen Draper MD [Staff Physician] - 2 Days - Patient Instructions Printed Discharge Instructions: DI for Low Back Pain, DI for Blisters Additional Instructions: Thank you for choosing [facility]. It was a pleasure taking care of you. You may take Motrin 600 mg every 6 hours by mouth as needed for mild to moderate pain. Take Motrin with food. Take Valium as needed for muscle spams. This medication can make you drowsy Wear lidocaine patch for pain. Take it off after 12 hours. Recommend warm compresses Avoid wearing tight shoes to prevent further rubbing of blister. Follow-up in podiatry clinic for evaluation Also follow-up with your regular doctor and consider physical therapy Return to the Emergency Department if your symptoms worsen or persist, you have fever, shortness of breath, chest pain, severe abdominal pain, vomiting, weakness of extremities (arms and/or legs), numbness around groin, unable to control bowel/bladder movements or other concerning symptoms. - Post Discharge Activity
[2019-05-07] MEDS ORDERED: diazePAM 5 MG TABLET PO ONE (20:36)
[2019-05-07] MEDS ORDERED: diazePAM 5 MG TABLET ONE (20:42)
== END 2019-05-07 20:45 | disposition home or self-care (01) ==
LOC: JERFT 17:47
PROC: 3E0233Z Introduction of Anti-inflammatory into Muscle, Percutaneous Approach (ICD-10-PCS; principal; 2019-05-07)
DX: M54.5 Low back pain (principal); W10.8XXA Fall (on) (from) other stairs and steps, initial encounter; Y93.89 Activity, other specified; Y92.89 Other specified places as the place of occurrence of the external cause; Y99.8 Other external cause status; I10 Essential (primary) hypertension; E11.9 Type 2 diabetes mellitus without complications; E78.00 Pure hypercholesterolemia, unspecified; Z87.19 Personal history of other diseases of the digestive system
CPT/HCPCS: 72131-TC; 81003; 96372; 99282-25

== ENCOUNTER → 2019-05-13 | Outpatient (CLI) | payer OTHER | LOC: YHH 15:44 ==

== ENCOUNTER 2020-04-11 05:04 | Day surgery (SDC) | payer OTHER ==
[2020-04-10 14:06] VITALS: BMI 45.3
[2020-04-11 09:11] VITALS: TEMP 97.5
[2020-04-11 09:46] VITALS: BP 143/84; PULSE 76
== END 2020-04-11 10:11 | disposition home or self-care (01) ==
LOC: JASU-ENDO 05:04
PROVIDERS: ATTEND Internal Medicine Gastroenterology
PROC: 0DJD8ZZ Inspection of Lower Intestinal Tract, Via Natural or Artificial Opening Endoscopic (ICD-10-PCS; principal; 2020-04-11 09:30)
DX: Z86.010 Personal history of colon polyps (principal)
CPT/HCPCS: 82962

== ENCOUNTER 2020-10-27 16:13 | Inpatient (IN) | payer OTHER ==
[2020-10-27] MEDS ORDERED: ACETAMINOPHEN 1000 MG/100 ML VIAL (NON FORMULARY) IVPB ONE (17:20)
[2020-10-27] MEDS ORDERED: ACETAMINOPHEN INJECTION 100 ML IVPB ONE (17:31)
[2020-10-27 17:45] LABS: BASO % 0.4 % (0-2.0); EOS % 2.3 % (0-4.5); HEMATOCRIT 37.3 % (32.4-45.2); HEMOGLOBIN 12.4 GM/dL (10.7-15.3); LYMPH % 11.3 % (8-40); MCH 26.4 pg (25.7-33.7); MCHC 33.3 g/dl (32.0-36.0); MEAN CELL VOLUME 79.3 fl (80-96); MEAN PLT VOLUME 6.9 fl (7.5-11.1); MONO % 8.9 % (3.8-10.2); NEUT % 77.1 % (42.8-82.8); PLATELET COUNT 319 K/MM3 (134-434); RDW 15.5 % (11.6-15.6); WHITE BLOOD COUNT 7.8 K/mm3 (4.0-10.0)
[2020-10-27 17:52] LABS: INR 1.03 (0.83-1.09); PROTHROMBIN TIME (PATIENT) 12.5 SEC (9.7-13.0)
[2020-10-27 17:54] LABS: ACTIVATED PTT 32.9 SECONDS (25.2-36.5)
[2020-10-27 18:05] LABS: CHLORIDE 113 mmol/L (98-107); POTASSIUM 4.8 mmol/L (3.5-5.1); SODIUM 145 mmol/L (136-145)
[2020-10-27 18:07] LABS: ALBUMIN 3.3 g/dl (3.4-5.0); ANION GAP 8 MMOL/L (8-16); BLOOD UREA NITROGEN 15.5 mg/dL (7-18); CO2 24 mmol/L (21-32); GLUCOSE,RANDOM 87 mg/dL (74-106)
[2020-10-27 18:10] LABS: CREATININE 0.8 mg/dL (0.55-1.3); SGOT/AST 42 U/L (15-37); SGPT/ALT 36 U/L (13-61)
[2020-10-27 18:12] LABS: BILIRUBIN,TOTAL 0.6 mg/dL (0.2-1); TOT PROT 6.8 g/dl (6.4-8.2)
[2020-10-27 18:13] LABS: ALK PHOS 50 U/L (45-117)
[2020-10-27 20:05] LABS: ANISOCYTOSIS 1+; MACROCYTOSIS 1+; PLATELET ESTIMATE NORMAL
[2020-10-27 20:31] LABS: URINE APPEARANCE CLEAR; URINE BILIRUBIN NEGATIVE (NEGATIVE); URINE COLOR DK YELLOW; URINE GLUCOSE (UA) NEGATIVE (NEGATIVE); URINE KETONE TRACE (NEGATIVE); URINE LEUK ESTERASE NEGATIVE (NEGATIVE); URINE NITRITE NEGATIVE (NEGATIVE); URINE PROTEIN NEGATIVE (NEGATIVE)
[2020-10-28 03:22] VITALS: BMI 40.4
[2020-10-28 09:12] LABS: CHLORIDE 113 mmol/L (98-107); POTASSIUM 3.6 mmol/L (3.5-5.1); SODIUM 147 mmol/L (136-145)
[2020-10-28 09:26] LABS: ALBUMIN 3.1 g/dl (3.4-5.0); ANION GAP 10 MMOL/L (8-16); CALCIUM 8.5 mg/dL (8.5-10.1); CO2 25 mmol/L (21-32); GLUCOSE,RANDOM 78 mg/dL (74-106)
[2020-10-28 09:27] LABS: BLOOD UREA NITROGEN 16.5 mg/dL (7-18); CREATININE 0.7 mg/dL (0.55-1.3); PHOSPHOROUS 3.5 mg/dL (2.5-4.9)
[2020-10-28 09:29] LABS: SGPT/ALT 30 U/L (13-61)
[2020-10-28 09:30] LABS: ALK PHOS 46 U/L (45-117); BILIRUBIN,TOTAL 0.7 mg/dL (0.2-1); SGOT/AST 21 U/L (15-37)
[2020-10-28] MEDS: ACETAMINOPHEN 500 MG TABLET (FP) PO SCH ×4 (09:58→21:21)
[2020-10-28] MEDS: LORATADINE 10 MG TABLET PO SCH (09:59)
[2020-10-28] MEDS: CHOLECALCIFEROL (VIT D3) 1,000 UNIT (25 MCG) TABLET PO SCH (09:59)
[2020-10-28] MEDS: LOSARTAN POTASSIUM 50 MG TABLET PO SCH (10:00)
[2020-10-28 20:57] LABS: LDH 230 U/L (84-246)
[2020-10-28] MEDS: ATORVASTATIN CA 10 MG TABLET (FP) PO SCH (21:21)
[2020-10-28] MEDS: FENOFIBRIC ACID 135 MG CAP PO SCH (21:21)
[2020-10-28] MEDS: INSULIN SLIDING SCALE (NOVOLOG) 1 VIAL SQ SCH (21:31)
[2020-10-29] MEDS: INSULIN SLIDING SCALE (NOVOLOG) 1 VIAL SQ SCH ×4 (06:24→21:44)
[2020-10-29 08:52] LABS: BASO % 0.3 % (0-2.0); EOS % 2.2 % (0-4.5); HEMATOCRIT 36.6 % (32.4-45.2); HEMOGLOBIN 12.1 GM/dL (10.7-15.3); LYMPH % 11.5 % (8-40); MCH 26.3 pg (25.7-33.7); MCHC 33.2 g/dl (32.0-36.0); MEAN CELL VOLUME 79.3 fl (80-96); MONO % 9.6 % (3.8-10.2); NEUT % 76.4 % (42.8-82.8); PLATELET COUNT 311 K/MM3 (134-434); RBC 4.61 M/mm3 (3.60-5.2); RDW 15.4 % (11.6-15.6); WHITE BLOOD COUNT 8.2 K/mm3 (4.0-10.0)
[2020-10-29 09:07] LABS: POTASSIUM 3.7 mmol/L (3.5-5.1)
[2020-10-29] MEDS: ACETAMINOPHEN 500 MG TABLET (FP) PO SCH ×4 (09:13→21:51)
[2020-10-29] MEDS: LORATADINE 10 MG TABLET PO SCH (09:14)
[2020-10-29] MEDS: CHOLECALCIFEROL (VIT D3) 1,000 UNIT (25 MCG) TABLET PO SCH (09:14)
[2020-10-29] MEDS: LOSARTAN POTASSIUM 50 MG TABLET PO SCH (09:14)
[2020-10-29 09:18] LABS: CALCIUM 8.7 mg/dL (8.5-10.1)
[2020-10-29 09:19] LABS: ALBUMIN 3.1 g/dl (3.4-5.0); BLOOD UREA NITROGEN 17.4 mg/dL (7-18); MAGNESIUM 2.1 mg/dL (1.8-2.4)
[2020-10-29 09:21] LABS: CREATININE 0.8 mg/dL (0.55-1.3)
[2020-10-29 09:24] LABS: BILIRUBIN,TOTAL 0.8 mg/dL (0.2-1); TOT PROT 6.2 g/dl (6.4-8.2)
[2020-10-29 11:05] LABS: ANISOCYTOSIS 0; HELMET CELLS 0; HOWELL-JOLLY BODIES 0; MACROCYTOSIS 0; OVALOCYTE 0; PLATELET ESTIMATE NORMAL; ROULEAU 0; SICKELED CELLS 0; TARGET CELLS 0; TEAR DROP CELLS 0; TOXIC GRANULATION 0
[2020-10-29] MEDS ORDERED: REMDESIVIR 200 MG in SODIUM CHLORIDE 210 ML IVPB ONE (12:28)
[2020-10-29] MEDS: DEXAMETHASONE SOD PHOSPHATE 4 MG/1 ML VIAL IVPUSH SCH (13:43)
[2020-10-29] MEDS: ATORVASTATIN CA 10 MG TABLET (FP) PO SCH (21:51)
[2020-10-29] MEDS: HEPARIN NA (PORCINE) 5,000 UNITS/ML 1ML VIAL SQ SCH (21:51)
[2020-10-29] MEDS: FENOFIBRIC ACID 135 MG CAP PO SCH (21:51)
[2020-10-30] MEDS: INSULIN SLIDING SCALE (NOVOLOG) 1 VIAL SQ SCH ×4 (06:30→23:47)
[2020-10-30 09:03] LABS: POTASSIUM 3.4 mmol/L (3.5-5.1)
[2020-10-30 09:22] LABS: ALBUMIN 3.3 g/dl (3.4-5.0); BILIRUBIN,TOTAL 0.5 mg/dL (0.2-1); BLOOD UREA NITROGEN 14.8 mg/dL (7-18)
[2020-10-30 09:23] LABS: CREATININE 0.7 mg/dL (0.55-1.3); TOT PROT 6.7 g/dl (6.4-8.2)
[2020-10-30] MEDS: ZINC SULFATE 220 MG CAPSULE (FP) PO SCH (09:52)
[2020-10-30] MEDS: LOSARTAN POTASSIUM 50 MG TABLET PO SCH (09:52)
[2020-10-30] MEDS: ACETAMINOPHEN 500 MG TABLET (FP) PO SCH ×4 (09:52→21:53)
[2020-10-30] MEDS: CHOLECALCIFEROL (VIT D3) 1,000 UNIT (25 MCG) TABLET PO SCH (09:53)
[2020-10-30] MEDS: LORATADINE 10 MG TABLET PO SCH (09:53)
[2020-10-30] MEDS: HEPARIN NA (PORCINE) 5,000 UNITS/ML 1ML VIAL SQ SCH ×2 (09:53→21:54)
[2020-10-30] MEDS: DEXAMETHASONE SOD PHOSPHATE 4 MG/1 ML VIAL IVPUSH SCH (09:53)
[2020-10-30] MEDS: REMDESIVIR 100 MG in SODIUM CHLORIDE 230 ML IVPB SCH (12:52)
[2020-10-30] MEDS: ATORVASTATIN CA 10 MG TABLET (FP) PO SCH (21:55)
[2020-10-30] MEDS: FENOFIBRIC ACID 135 MG CAP PO SCH (21:55)
[2020-10-31] MEDS ORDERED: NITROFURANTOIN MACROCRYSTAL 50 MG CAPSULE (FP) PO SCH
[2020-10-31] MEDS: INSULIN SLIDING SCALE (NOVOLOG) 1 VIAL SQ SCH ×4 (06:07→22:33)
[2020-10-31 07:29] LABS: BASO % 0.3 % (0-2.0); MEAN PLT VOLUME 7.3 fl (7.5-11.1); PLATELET COUNT 346 K/MM3 (134-434)
[2020-10-31 07:37] LABS: POTASSIUM 3.9 mmol/L (3.5-5.1)
[2020-10-31 07:41] LABS: CALCIUM 8.9 mg/dL (8.5-10.1)
[2020-10-31 07:42] LABS: ALBUMIN 3.3 g/dl (3.4-5.0); BLOOD UREA NITROGEN 19.8 mg/dL (7-18); MAGNESIUM 2.2 mg/dL (1.8-2.4)
[2020-10-31 07:45] LABS: CREATININE 0.7 mg/dL (0.55-1.3)
[2020-10-31 07:47] LABS: TOT PROT 6.2 g/dl (6.4-8.2)
[2020-10-31 07:48] LABS: BILIRUBIN,TOTAL 0.4 mg/dL (0.2-1)
[2020-10-31 08:28] LABS: HEMATOCRIT 35.3 % (32.4-45.2); HEMOGLOBIN 11.6 GM/dL (10.7-15.3); LYMPH % 7.9 % (8-40); MCH 26.1 pg (25.7-33.7); MEAN CELL VOLUME 79.1 fl (80-96); MONO % 5.5 % (3.8-10.2); NEUT % 86.3 % (42.8-82.8); RBC 4.46 M/mm3 (3.60-5.2); RDW 15.9 % (11.6-15.6); WHITE BLOOD COUNT 14.4 K/mm3 (4.0-10.0)
[2020-10-31] MEDS: DEXAMETHASONE SOD PHOSPHATE 4 MG/1 ML VIAL IVPUSH SCH (09:29)
[2020-10-31] MEDS: CHOLECALCIFEROL (VIT D3) 1,000 UNIT (25 MCG) TABLET PO SCH (09:30)
[2020-10-31] MEDS: HEPARIN NA (PORCINE) 5,000 UNITS/ML 1ML VIAL SQ SCH ×2 (09:30→22:22)
[2020-10-31] MEDS: ZINC SULFATE 220 MG CAPSULE (FP) PO SCH (09:31)
[2020-10-31] MEDS: LORATADINE 10 MG TABLET PO SCH (09:31)
[2020-10-31] MEDS: LOSARTAN POTASSIUM 50 MG TABLET PO SCH (09:32)
[2020-10-31] MEDS: ACETAMINOPHEN 500 MG TABLET (FP) PO SCH (09:33)
[2020-10-31] MEDS ORDERED: ALBUTEROL SO4 2.5/IPRATROPIUM 0.5 INH SOL 3 ML VIAL.NEB. NEB PRN (12:52)
[2020-10-31] MEDS ORDERED: ACETAMINOPHEN 325 MG TABLET (FP) PO PRN (12:52)
[2020-10-31] MEDS: REMDESIVIR 100 MG in SODIUM CHLORIDE 230 ML IVPB SCH (13:31)
[2020-10-31] MEDS ORDERED: PT OWN MED DRAWER 7, Y5N ONE (17:16)
[2020-10-31] MEDS: guaiFENesin 200 MG/10 ML 10 ML UNIT-DOSE CUPS PO PRN (20:19)
[2020-10-31] MEDS: FENOFIBRIC ACID 135 MG CAP PO SCH (22:23)
[2020-10-31] MEDS: ATORVASTATIN CA 10 MG TABLET (FP) PO SCH (22:23)
[2020-11-01] MEDS: INSULIN SLIDING SCALE (NOVOLOG) 1 VIAL SQ SCH ×4 (06:10→21:41)
[2020-11-01 07:34] LABS: BASO % 0.5 % (0-2.0); HEMOGLOBIN 11.9 GM/dL (10.7-15.3); LYMPH % 9.7 % (8-40); MCH 26.2 pg (25.7-33.7); MCHC 32.9 g/dl (32.0-36.0); MEAN CELL VOLUME 79.5 fl (80-96); MEAN PLT VOLUME 7.7 fl (7.5-11.1); MONO % 5.6 % (3.8-10.2); NEUT % 84.2 % (42.8-82.8); PLATELET COUNT 299 K/MM3 (134-434); RBC 4.53 M/mm3 (3.60-5.2); RDW 15.7 % (11.6-15.6); WHITE BLOOD COUNT 11.1 K/mm3 (4.0-10.0)
[2020-11-01 07:54] LABS: POTASSIUM 3.7 mmol/L (3.5-5.1)
[2020-11-01 07:57] LABS: BLOOD UREA NITROGEN 20.6 mg/dL (7-18); CALCIUM 8.5 mg/dL (8.5-10.1); MAGNESIUM 2.1 mg/dL (1.8-2.4)
[2020-11-01 07:58] LABS: ALBUMIN 3.3 g/dl (3.4-5.0)
[2020-11-01 08:00] LABS: CREATININE 0.7 mg/dL (0.55-1.3)
[2020-11-01 08:04] LABS: TOT PROT 6.2 g/dl (6.4-8.2)
[2020-11-01 08:25] LABS: BILIRUBIN,TOTAL 0.9 mg/dL (0.2-1)
[2020-11-01] MEDS: LORATADINE 10 MG TABLET PO SCH (09:31)
[2020-11-01] MEDS: ZINC SULFATE 220 MG CAPSULE (FP) PO SCH (09:31)
[2020-11-01] MEDS: CHOLECALCIFEROL (VIT D3) 1,000 UNIT (25 MCG) TABLET PO SCH (09:32)
[2020-11-01] MEDS: LOSARTAN POTASSIUM 50 MG TABLET PO SCH (09:33)
[2020-11-01] MEDS: DEXAMETHASONE SOD PHOSPHATE 4 MG/1 ML VIAL IVPUSH SCH (09:33)
[2020-11-01] MEDS: HEPARIN NA (PORCINE) 5,000 UNITS/ML 1ML VIAL SQ SCH ×2 (09:33→21:25)
[2020-11-01] MEDS: REMDESIVIR 100 MG in SODIUM CHLORIDE 230 ML IVPB SCH (13:01)
[2020-11-01] MEDS: guaiFENesin 200 MG/10 ML 10 ML UNIT-DOSE CUPS PO PRN (20:30)
[2020-11-01] MEDS: ATORVASTATIN CA 10 MG TABLET (FP) PO SCH (21:26)
[2020-11-01] MEDS: FENOFIBRIC ACID 135 MG CAP PO SCH (21:26)
[2020-11-02 06:58] LABS: BASO % 0.2 % (0-2.0); HEMATOCRIT 37.4 % (32.4-45.2); HEMOGLOBIN 12.2 GM/dL (10.7-15.3); LYMPH % 8.1 % (8-40); MCHC 32.5 g/dl (32.0-36.0); MEAN CELL VOLUME 79.8 fl (80-96); MEAN PLT VOLUME 7.9 fl (7.5-11.1); MONO % 6.8 % (3.8-10.2); NEUT % 84.9 % (42.8-82.8); PLATELET COUNT 297 K/MM3 (134-434); RBC 4.69 M/mm3 (3.60-5.2); RDW 15.7 % (11.6-15.6); WHITE BLOOD COUNT 13.3 K/mm3 (4.0-10.0)
[2020-11-02] MEDS: INSULIN SLIDING SCALE (NOVOLOG) 1 VIAL SQ SCH ×2 (07:29→12:28)
[2020-11-02 07:43] LABS: CHLORIDE 109 mmol/L (98-107); POTASSIUM 3.7 mmol/L (3.5-5.1); SODIUM 144 mmol/L (136-145)
[2020-11-02] MEDS ORDERED: POTASSIUM CHLORIDE TABS 20 MEQ TABLET.ER (FP) PO ONE (07:48)
[2020-11-02 08:11] LABS: ALBUMIN 3.3 g/dl (3.4-5.0); ANION GAP 10 MMOL/L (8-16); CALCIUM 8.9 mg/dL (8.5-10.1); CO2 25 mmol/L (21-32); GLUCOSE,RANDOM 89 mg/dL (74-106); MAGNESIUM 2.2 mg/dL (1.8-2.4)
[2020-11-02 08:14] LABS: CREATININE 0.8 mg/dL (0.55-1.3); SGOT/AST 7 U/L (15-37); SGPT/ALT 21 U/L (13-61)
[2020-11-02 08:16] LABS: BILIRUBIN,TOTAL 0.9 mg/dL (0.2-1); LDH 149 U/L (84-246); TOT PROT 6.2 g/dl (6.4-8.2)
[2020-11-02 08:17] LABS: ALK PHOS 38 U/L (45-117)
[2020-11-02] MEDS: LOSARTAN POTASSIUM 50 MG TABLET PO SCH (09:32)
[2020-11-02] MEDS: LORATADINE 10 MG TABLET PO SCH (09:32)
[2020-11-02] MEDS: ZINC SULFATE 220 MG CAPSULE (FP) PO SCH (09:33)
[2020-11-02] MEDS: CHOLECALCIFEROL (VIT D3) 1,000 UNIT (25 MCG) TABLET PO SCH (09:33)
[2020-11-02] MEDS: HEPARIN NA (PORCINE) 5,000 UNITS/ML 1ML VIAL SQ SCH ×2 (09:34→21:08)
[2020-11-02] MEDS: DEXAMETHASONE SOD PHOSPHATE 4 MG/1 ML VIAL IVPUSH SCH (09:34)
[2020-11-02] MEDS: ACETAMINOPHEN 325 MG TABLET (FP) PO PRN ×2 (09:34→21:36)
[2020-11-02] MEDS: REMDESIVIR 100 MG in SODIUM CHLORIDE 230 ML IVPB SCH (13:32)
[2020-11-02] MEDS ORDERED: SENNOSIDES 8.6MG TABLET (FP) PO PRN (14:03)
[2020-11-02] MEDS: FENOFIBRIC ACID 135 MG CAP PO SCH (21:08)
[2020-11-02] MEDS: ATORVASTATIN CA 10 MG TABLET (FP) PO SCH (21:08)
[2020-11-02] MEDS: POLYETHYLENE GLYCOL 3350 119 GM BTL PO SCH (21:09)
[2020-11-02] MEDS ORDERED: APIXABAN 5 MG TABLET PO SCH (22:00)
[2020-11-02] MEDS ORDERED: DOCUSATE SODIUM 100 MG CAPSULE (FP) PO SCH (22:00)
[2020-11-03 07:35] LABS: BASO % 0.1 % (0-2.0); EOS % 0.1 % (0-4.5); HEMATOCRIT 38.2 % (32.4-45.2); HEMOGLOBIN 12.5 GM/dL (10.7-15.3); MCH 25.9 pg (25.7-33.7); MCHC 32.8 g/dl (32.0-36.0); MEAN PLT VOLUME 7.7 fl (7.5-11.1); MONO % 6.3 % (3.8-10.2); NEUT % 84.5 % (42.8-82.8); PLATELET COUNT 305 K/MM3 (134-434); RBC 4.83 M/mm3 (3.60-5.2); RDW 15.9 % (11.6-15.6); WHITE BLOOD COUNT 14.9 K/mm3 (4.0-10.0)
[2020-11-03 08:01] LABS: CHLORIDE 108 mmol/L (98-107); SODIUM 143 mmol/L (136-145)
[2020-11-03 08:08] LABS: CALCIUM 8.8 mg/dL (8.5-10.1)
[2020-11-03 08:09] LABS: ALBUMIN 3.3 g/dl (3.4-5.0); ANION GAP 8 MMOL/L (8-16); BLOOD UREA NITROGEN 28.1 mg/dL (7-18); CO2 26 mmol/L (21-32); GLUCOSE,RANDOM 77 mg/dL (74-106); MAGNESIUM 2.2 mg/dL (1.8-2.4)
[2020-11-03 08:12] LABS: CREATININE 0.9 mg/dL (0.55-1.3); SGOT/AST 5 U/L (15-37); SGPT/ALT 17 U/L (13-61)
[2020-11-03 08:13] LABS: BILIRUBIN,TOTAL 0.5 mg/dL (0.2-1); LDH 142 U/L (84-246); TOT PROT 6.2 g/dl (6.4-8.2)
[2020-11-03 08:14] LABS: ALK PHOS 37 U/L (45-117)
[2020-11-03] MEDS: ZINC SULFATE 220 MG CAPSULE (FP) PO SCH (09:45)
[2020-11-03] MEDS: LOSARTAN POTASSIUM 50 MG TABLET PO SCH (09:46)
[2020-11-03] MEDS: LORATADINE 10 MG TABLET PO SCH (09:46)
[2020-11-03] MEDS: CHOLECALCIFEROL (VIT D3) 1,000 UNIT (25 MCG) TABLET PO SCH (09:47)
[2020-11-03] MEDS: POLYETHYLENE GLYCOL 3350 119 GM BTL PO SCH (09:49)
[2020-11-03] MEDS: ACETAMINOPHEN 325 MG TABLET (FP) PO PRN (09:49)
[2020-11-03] MEDS ORDERED: DEXAMETHASONE 4 MG TABLET (FP) PO SCH (10:00)
[2020-11-03] MEDS ORDERED: APIXABAN 5 MG TABLET PO SCH (10:00)
[2020-11-03] MEDS ORDERED: LURASIDONE HCL 20 MG, LURASIDONE HCL 40 MG PO SCH (10:00)
[2020-11-03] MEDS ORDERED: LURASIDONE HCL 40 MG TABLET PO SCH (10:00)
[2020-11-03 20:07] VITALS: BP 147/86; PULSE 98; TEMP 98.8
== END 2020-11-03 20:37 | disposition home health service (06) | DRG 137 ==
LOC: JER 16:13 → JERBED 20:53 → J4W 23:39 → OBSVTOIN 10-30 10:33
PROVIDERS: ADMIT Internal Medicine; ATTEND Nurse Practitioner Acute Care
PROC: XW033E5 Introduction of Remdesivir Anti-infective into Peripheral Vein, Percutaneous Approach, New Technology Group 5 (ICD-10-PCS; principal; 2020-10-29)
DX: U07.1 COVID-19 (principal); J96.01 Acute respiratory failure with hypoxia; J12.82 Pneumonia due to coronavirus disease 2019; S09.90XA Unspecified injury of head, initial encounter; I10 Essential (primary) hypertension; E78.5 Hyperlipidemia, unspecified; E11.9 Type 2 diabetes mellitus without complications; G25.0 Essential tremor; R29.6 Repeated falls; F41.9 Anxiety disorder, unspecified; M54.9 Dorsalgia, unspecified; R55 Syncope and collapse; W19.XXXA Unspecified fall, initial encounter; Y93.89 Activity, other specified; Y92.009 Unspecified place in unspecified non-institutional (private) residence as the place of occurrence of the external cause; Y99.8 Other external cause status; K59.00 Constipation, unspecified; R91.8 Other nonspecific abnormal finding of lung field
CPT/HCPCS: 36415; 70450-TC; 71045-TC-FY; 71250-TC; 72125-TC; 72128-TC; 72131-TC; 72170-TC-FY; 73562-TC-RT-FY; 80053; 81003; 82550; 82728; 82962; 83615; 83735; 83880; 84100; 84443; 84484; 85025; 85379; 85610; 85730; 86140; 86769; 87086; 87186; 93005; 93010; 97116-GP; 97161-GP; 99285-25; C9399; C9803; G0378; J0131; J1644; U0003

== ENCOUNTER 2021-04-27 14:08 | Inpatient (IN) | payer OTHER ==
[2021-04-27] MEDS ORDERED: ACETAMINOPHEN 1000 MG/100 ML VIAL (NON FORMULARY) IVPB ONE (15:06)
[2021-04-27] MEDS ORDERED: ACETAMINOPHEN INJECTION 100 ML IVPB ONE (15:38)
[2021-04-27 16:22] LABS: BASO % 0.4 % (0-2.0); EOS % 2.4 % (0-4.5); HEMATOCRIT 39.2 % (32.4-45.2); LYMPH % 16.1 % (8-40); MCH 26.2 pg (25.7-33.7); MCHC 33.2 g/dl (32.0-36.0); MEAN CELL VOLUME 78.9 fl (80-96); MEAN PLT VOLUME 7.1 fl (7.5-11.1); NEUT % 75.1 % (42.8-82.8); PLATELET COUNT 290 10^3/uL (134-434); RBC 4.97 M/mm3 (3.60-5.2); RDW 15.2 % (11.6-15.6); WHITE BLOOD COUNT 6.9 K/mm3 (4.0-10.0)
[2021-04-27 16:31] LABS: INR 1.01 (0.83-1.09); PROTHROMBIN TIME (PATIENT) 12.2 SEC (9.7-13.0)
[2021-04-27 16:33] LABS: CHLORIDE 111 mmol/L (98-107); SODIUM 142 mmol/L (136-145)
[2021-04-27 16:34] LABS: ACTIVATED PTT 30.8 SECONDS (25.2-36.5)
[2021-04-27 16:35] LABS: ANION GAP 8 MMOL/L (8-16); BLOOD UREA NITROGEN 19.7 mg/dL (7-18); CALCIUM 8.9 mg/dL (8.5-10.1); CO2 23 mmol/L (21-32)
[2021-04-27 16:36] LABS: GLUCOSE,RANDOM 91 mg/dL (74-106)
[2021-04-27 16:38] LABS: SGPT/ALT 17 U/L (13-61)
[2021-04-27 16:39] LABS: CREATININE 1.1 mg/dL (0.55-1.3); SGOT/AST 10 U/L (15-37)
[2021-04-27 16:40] LABS: BILIRUBIN,TOTAL 0.4 mg/dL (0.2-1); TOT PROT 6.9 g/dl (6.4-8.2)
[2021-04-27 16:41] LABS: ALK PHOS 39 U/L (45-117)
[2021-04-27] MEDS: INSULIN SLIDING SCALE (NOVOLOG) 1 VIAL SQ SCH (22:13)
[2021-04-27] MEDS ORDERED: ACETAMINOPHEN 325 MG TABLET (FP) PO ONE (22:19)
[2021-04-27] MEDS ORDERED: INSULIN (NOVOLOG) ASPART 100 UNITS/ML 10ML VIAL ONE (22:49)
[2021-04-27] MEDS ORDERED: PNEUMOC 13-VAL CONJ-DIP CRM/PF 0.5 ML DISP.SYRIN IM ONE (23:43)
[2021-04-27 23:44] VITALS: BMI 37.7
[2021-04-28 01:32] LABS: URINE APPEARANCE CLEAR; URINE BILIRUBIN NEGATIVE (NEGATIVE); URINE COLOR YELLOW; URINE GLUCOSE (UA) NEGATIVE (NEGATIVE); URINE KETONE NEGATIVE (NEGATIVE); URINE LEUK ESTERASE NEGATIVE (NEGATIVE); URINE NITRITE NEGATIVE (NEGATIVE); URINE PROTEIN NEGATIVE (NEGATIVE)
[2021-04-28] MEDS ORDERED: INSULIN (LEVEMIR) 100 UNITS/ML UNITS SQ ONE (05:51)
[2021-04-28] MEDS: INSULIN SLIDING SCALE (NOVOLOG) 1 VIAL SQ SCH ×4 (06:21→21:30)
[2021-04-28 07:28] LABS: BASO % 0.7 % (0-2.0); EOS % 3.4 % (0-4.5); HEMATOCRIT 35.9 % (32.4-45.2); HEMOGLOBIN 11.9 GM/dL (10.7-15.3); LYMPH % 18.7 % (8-40); MCH 26.2 pg (25.7-33.7); MCHC 33.2 g/dl (32.0-36.0); MEAN CELL VOLUME 78.8 fl (80-96); MEAN PLT VOLUME 7.2 fl (7.5-11.1); MONO % 6.3 % (3.8-10.2); NEUT % 70.9 % (42.8-82.8); PLATELET COUNT 244 10^3/uL (134-434); RBC 4.55 M/mm3 (3.60-5.2); RDW 15.1 % (11.6-15.6); WHITE BLOOD COUNT 7.2 K/mm3 (4.0-10.0)
[2021-04-28 07:46] LABS: ALBUMIN 3.3 g/dl (3.4-5.0); CALCIUM 8.2 mg/dL (8.5-10.1)
[2021-04-28 07:47] LABS: BLOOD UREA NITROGEN 18.6 mg/dL (7-18)
[2021-04-28 07:49] LABS: PHOSPHOROUS 3.4 mg/dL (2.5-4.9)
[2021-04-28 07:51] LABS: BILIRUBIN,TOTAL 0.4 mg/dL (0.2-1); TOT PROT 5.7 g/dl (6.4-8.2)
[2021-04-28] MEDS ORDERED: PNEUMOCOCCAL 23 VACCINE 0.5 ML VIAL IM ONE (10:00)
[2021-04-28] MEDS ORDERED: ENOXAPARIN NA (PORCINE) 40 MG/0.4 ML DISP.SYRIN SQ SCH (10:00)
[2021-04-28] MEDS ORDERED: POLYETHYLENE GLYCOL (HEALTHYLAX) 3350 17 GM PACKET PO ONE (10:39)
[2021-04-28] MEDS ORDERED: LOSARTAN POTASSIUM 100 MG TABLET PO SCH (13:45)
[2021-04-28] MEDS: APIXABAN 5 MG TABLET PO SCH ×2 (14:30→21:30)
[2021-04-28] MEDS: BENZTROPINE MESYLATE 0.5 MG TABLET (FP) PO SCH (14:30)
[2021-04-28] MEDS: DEXAMETHASONE 4 MG TABLET (FP) PO SCH (14:30)
[2021-04-28] MEDS: LOSARTAN POTASSIUM 50 MG TABLET PO SCH (14:30)
[2021-04-28] MEDS: DOCUSATE SODIUM 100 MG CAPSULE (FP) PO SCH (21:30)
[2021-04-28] MEDS ORDERED: metFORMIN HCL 500 MG TABLET (FP) PO SCH (22:00)
[2021-04-29] MEDS: INSULIN SLIDING SCALE (NOVOLOG) 1 VIAL SQ SCH ×4 (06:08→21:05)
[2021-04-29] MEDS: ACETAMINOPHEN 325 MG TABLET (FP) PO PRN ×2 (06:58→17:32)
[2021-04-29 08:16] LABS: HEMATOCRIT 39.4 % (32.4-45.2); HEMOGLOBIN 13.2 GM/dL (10.7-15.3); MCH 26.5 pg (25.7-33.7); MCHC 33.4 g/dl (32.0-36.0); MEAN CELL VOLUME 79.2 fl (80-96); MEAN PLT VOLUME 7.6 fl (7.5-11.1); PLATELET COUNT 291 10^3/uL (134-434); RBC 4.98 M/mm3 (3.60-5.2); RDW 15.2 % (11.6-15.6); WHITE BLOOD COUNT 8.2 K/mm3 (4.0-10.0)
[2021-04-29 08:36] LABS: ALBUMIN 3.8 g/dl (3.4-5.0)
[2021-04-29 08:37] LABS: BLOOD UREA NITROGEN 20.4 mg/dL (7-18); CALCIUM 9.1 mg/dL (8.5-10.1)
[2021-04-29 08:38] LABS: BILIRUBIN,TOTAL 0.4 mg/dL (0.2-1); MAGNESIUM 2.4 mg/dL (1.8-2.4); TOT PROT 6.8 g/dl (6.4-8.2)
[2021-04-29 08:40] LABS: CREATININE 0.9 mg/dL (0.55-1.3); PHOSPHOROUS 2.6 mg/dL (2.5-4.9)
[2021-04-29] MEDS: APIXABAN 5 MG TABLET PO SCH ×2 (09:07→21:13)
[2021-04-29] MEDS: LOSARTAN POTASSIUM 50 MG TABLET PO SCH (09:07)
[2021-04-29] MEDS: ZINC SULFATE 220 MG CAPSULE (FP) PO SCH (09:07)
[2021-04-29] MEDS: POLYETHYLENE GLYCOL (HEALTHYLAX) 3350 17 GM PACKET PO SCH ×2 (09:08→21:14)
[2021-04-29] MEDS: DEXAMETHASONE 4 MG TABLET (FP) PO SCH (09:08)
[2021-04-29 10:30] LABS: ANISOCYTOSIS 0; HELMET CELLS 0; HOWELL-JOLLY BODIES 0; MACROCYTOSIS 0; OVALOCYTE 0; PLATELET ESTIMATE NORMAL; ROULEAU 0; SICKELED CELLS 0; TARGET CELLS 0; TEAR DROP CELLS 0; TOXIC GRANULATION 0
[2021-04-29] MEDS ORDERED: PT OWN MED DRAWER 7, Y5N ONE (12:23)
[2021-04-29] MEDS: BENZTROPINE MESYLATE 0.5 MG TABLET (FP) PO SCH (12:26)
[2021-04-29] MEDS: LURASIDONE HCL 20 MG TABLET PO SCH (12:27)
[2021-04-29] MEDS: DOCUSATE SODIUM 100 MG CAPSULE (FP) PO SCH (21:13)
[2021-04-29] MEDS: MELATONIN 5 MG TABLETS PO PRN (21:56)
[2021-04-30] MEDS: INSULIN SLIDING SCALE (NOVOLOG) 1 VIAL SQ SCH ×4 (06:12→21:48)
[2021-04-30 08:18] LABS: BASO % 0.1 % (0-2.0); HEMOGLOBIN 12.3 GM/dL (10.7-15.3); LYMPH % 8.3 % (8-40); MCH 26.3 pg (25.7-33.7); MCHC 33.2 g/dl (32.0-36.0); MEAN CELL VOLUME 79.4 fl (80-96); MEAN PLT VOLUME 7.6 fl (7.5-11.1); MONO % 5.5 % (3.8-10.2); NEUT % 86.1 % (42.8-82.8); PLATELET COUNT 293 10^3/uL (134-434); RBC 4.66 M/mm3 (3.60-5.2); RDW 14.9 % (11.6-15.6); WHITE BLOOD COUNT 14.4 K/mm3 (4.0-10.0)
[2021-04-30 08:42] LABS: ALBUMIN 3.5 g/dl (3.4-5.0)
[2021-04-30 08:43] LABS: CALCIUM 8.8 mg/dL (8.5-10.1)
[2021-04-30 08:44] LABS: MAGNESIUM 2.3 mg/dL (1.8-2.4)
[2021-04-30 08:47] LABS: CREATININE 0.9 mg/dL (0.55-1.3); PHOSPHOROUS 3.2 mg/dL (2.5-4.9)
[2021-04-30 08:48] LABS: BILIRUBIN,TOTAL 0.3 mg/dL (0.2-1); TOT PROT 6.1 g/dl (6.4-8.2)
[2021-04-30] MEDS: LOSARTAN POTASSIUM 50 MG TABLET PO SCH (09:04)
[2021-04-30] MEDS: DEXAMETHASONE 4 MG TABLET (FP) PO SCH (09:04)
[2021-04-30] MEDS: APIXABAN 5 MG TABLET PO SCH ×2 (09:04→21:40)
[2021-04-30] MEDS: ZINC SULFATE 220 MG CAPSULE (FP) PO SCH (09:04)
[2021-04-30] MEDS: POLYETHYLENE GLYCOL (HEALTHYLAX) 3350 17 GM PACKET PO SCH ×2 (09:05→21:38)
[2021-04-30] MEDS ORDERED: PT OWN MED DRAWER 7, Y5N ONE ×2 (10:48→21:27)
[2021-04-30] MEDS: LURASIDONE HCL 20 MG TABLET PO SCH (13:00)
[2021-04-30] MEDS: BENZTROPINE MESYLATE 0.5 MG TABLET (FP) PO SCH (13:01)
[2021-04-30] MEDS: ACETAMINOPHEN 325 MG TABLET (FP) PO PRN (14:02)
[2021-04-30] MEDS: PANTOPRAZOLE 40 MG TABLET PO SCH (18:57)
[2021-04-30] MEDS: DOCUSATE SODIUM 100 MG CAPSULE (FP) PO SCH (21:40)
[2021-04-30] MEDS: DICLOFENAC SODIUM 25 MG TABLET.DR PO SCH (21:54)
[2021-04-30] MEDS: MELATONIN 5 MG TABLETS PO PRN (23:58)
[2021-05-01] MEDS: ACETAMINOPHEN 325 MG TABLET (FP) PO PRN ×2 (00:09→22:48)
[2021-05-01] MEDS: INSULIN SLIDING SCALE (NOVOLOG) 1 VIAL SQ SCH ×4 (06:33→21:11)
[2021-05-01 07:49] LABS: BASO % 0.1 % (0-2.0); EOS % 0.1 % (0-4.5); HEMATOCRIT 37.3 % (32.4-45.2); HEMOGLOBIN 12.4 GM/dL (10.7-15.3); MCH 26.5 pg (25.7-33.7); MCHC 33.3 g/dl (32.0-36.0); MEAN CELL VOLUME 79.6 fl (80-96); MEAN PLT VOLUME 7.5 fl (7.5-11.1); MONO % 5.9 % (3.8-10.2); NEUT % 77.9 % (42.8-82.8); PLATELET COUNT 301 10^3/uL (134-434); RBC 4.68 M/mm3 (3.60-5.2); RDW 15.4 % (11.6-15.6); WHITE BLOOD COUNT 10.3 K/mm3 (4.0-10.0)
[2021-05-01 08:12] LABS: CALCIUM 8.4 mg/dL (8.5-10.1)
[2021-05-01 08:13] LABS: ALBUMIN 3.5 g/dl (3.4-5.0); BLOOD UREA NITROGEN 25.8 mg/dL (7-18)
[2021-05-01 08:15] LABS: PHOSPHOROUS 3.4 mg/dL (2.5-4.9)
[2021-05-01 08:16] LABS: BILIRUBIN,TOTAL 0.4 mg/dL (0.2-1); TOT PROT 6.3 g/dl (6.4-8.2)
[2021-05-01] MEDS ORDERED: PT OWN MED DRAWER 7, Y5N ONE ×2 (09:21→11:41)
[2021-05-01] MEDS: DEXAMETHASONE 4 MG TABLET (FP) PO SCH (09:23)
[2021-05-01] MEDS: ZINC SULFATE 220 MG CAPSULE (FP) PO SCH (09:24)
[2021-05-01] MEDS: LOSARTAN POTASSIUM 50 MG TABLET PO SCH (09:24)
[2021-05-01] MEDS: LURASIDONE HCL 20 MG TABLET PO SCH (09:24)
[2021-05-01] MEDS: PANTOPRAZOLE 40 MG TABLET PO SCH (09:24)
[2021-05-01] MEDS: APIXABAN 5 MG TABLET PO SCH ×2 (09:24→21:04)
[2021-05-01] MEDS: POLYETHYLENE GLYCOL (HEALTHYLAX) 3350 17 GM PACKET PO SCH ×2 (09:24→21:04)
[2021-05-01] MEDS: DICLOFENAC SODIUM 25 MG TABLET.DR PO SCH (09:25)
[2021-05-01] MEDS ORDERED: PANTOPRAZOLE 40 MG TABLET PO SCH ×2 (10:00→18:45)
[2021-05-01] MEDS: BENZTROPINE MESYLATE 0.5 MG TABLET (FP) PO SCH (11:46)
[2021-05-01] MEDS ORDERED: diazePAM 2 MG TABLET PO ONE (14:15)
[2021-05-01] MEDS: DOCUSATE SODIUM 100 MG CAPSULE (FP) PO SCH (21:04)
[2021-05-01] MEDS: MELATONIN 5 MG TABLETS PO PRN (21:10)
[2021-05-02] MEDS ORDERED: diazePAM 2 MG TABLET PO ONE (00:49)
[2021-05-02] MEDS: INSULIN SLIDING SCALE (NOVOLOG) 1 VIAL SQ SCH ×2 (06:02→12:56)
[2021-05-02 07:02] LABS: BASO % 0.6 % (0-2.0); EOS % 0.3 % (0-4.5); HEMATOCRIT 37.6 % (32.4-45.2); HEMOGLOBIN 12.6 GM/dL (10.7-15.3); MCH 26.6 pg (25.7-33.7); MCHC 33.5 g/dl (32.0-36.0); MEAN CELL VOLUME 79.3 fl (80-96); MEAN PLT VOLUME 8.2 fl (7.5-11.1); MONO % 6.7 % (3.8-10.2); NEUT % 79.4 % (42.8-82.8); PLATELET COUNT 208 10^3/uL (134-434); RBC 4.74 M/mm3 (3.60-5.2); RDW 14.9 % (11.6-15.6); WHITE BLOOD COUNT 12.4 K/mm3 (4.0-10.0)
[2021-05-02 07:23] LABS: CALCIUM 8.4 mg/dL (8.5-10.1)
[2021-05-02 07:24] LABS: ALBUMIN 3.3 g/dl (3.4-5.0); BLOOD UREA NITROGEN 22.4 mg/dL (7-18)
[2021-05-02 07:27] LABS: CREATININE 0.8 mg/dL (0.55-1.3)
[2021-05-02 07:28] LABS: BILIRUBIN,TOTAL 0.3 mg/dL (0.2-1)
[2021-05-02] MEDS ORDERED: PT OWN MED DRAWER 7, Y5N ONE (08:16)
[2021-05-02] MEDS: ZINC SULFATE 220 MG CAPSULE (FP) PO SCH (09:24)
[2021-05-02] MEDS: DEXAMETHASONE 4 MG TABLET (FP) PO SCH (09:24)
[2021-05-02] MEDS: PANTOPRAZOLE 40 MG TABLET PO SCH (09:26)
[2021-05-02] MEDS: APIXABAN 5 MG TABLET PO SCH (09:26)
[2021-05-02] MEDS: LOSARTAN POTASSIUM 50 MG TABLET PO SCH (09:26)
[2021-05-02] MEDS: BENZTROPINE MESYLATE 0.5 MG TABLET (FP) PO SCH (09:27)
[2021-05-02] MEDS: POLYETHYLENE GLYCOL (HEALTHYLAX) 3350 17 GM PACKET PO SCH (09:28)
[2021-05-02] MEDS: LURASIDONE HCL 20 MG TABLET PO SCH (09:28)
[2021-05-02 14:45] VITALS: BP 129/71; PULSE 79; TEMP 97.6
[2021-05-03] MEDS ORDERED: ENOXAPARIN NA (PORCINE) 40 MG/0.4 ML DISP.SYRIN SQ SCH (10:00)
== END 2021-05-02 17:08 | disposition home health service (06) | DRG 204 ==
LOC: JER 14:08 → JERBED 15:39 → J4W 20:41
PROVIDERS: ADMIT Internal Medicine; ATTEND Internal Medicine
DX: R55 Syncope and collapse (principal); E11.40 Type 2 diabetes mellitus with diabetic neuropathy, unspecified; E86.0 Dehydration; I10 Essential (primary) hypertension; E78.5 Hyperlipidemia, unspecified; G25.0 Essential tremor; K57.90 Diverticulosis of intestine, part unspecified, without perforation or abscess without bleeding; K58.9 Irritable bowel syndrome, unspecified; F41.8 Other specified anxiety disorders; M25.561 Pain in right knee; M25.562 Pain in left knee; M54.5 Low back pain; R51.9 Headache, unspecified; G89.4 Chronic pain syndrome; R29.6 Repeated falls; E66.9 Obesity, unspecified; Z68.37 Body mass index [BMI] 37.0-37.9, adult; G56.00 Carpal tunnel syndrome, unspecified upper limb; W18.39XA Other fall on same level, initial encounter; Z95.5 Presence of coronary angioplasty implant and graft; Z96.653 Presence of artificial knee joint, bilateral; Y92.89 Other specified places as the place of occurrence of the external cause
CPT/HCPCS: 36415; 70450-TC; 70486-TC; 70551-TC; 72125-TC; 73110-TC-LT-FY; 73110-TC-RT-FY; 73130-TC-LT-FY; 73130-TC-RT-FY; 73562-TC-LT-FY; 73562-TC-RT-FY; 80053; 80061; 81003; 82607; 82962; 83735; 84100; 84443; 84484; 85025; 85610; 85730; 87077; 87086; 93005; 93010; 93306-TC; 93880-TC; 97116-GP; 97161-GP; 99285-25; C9803; J0131; U0003; U0005

== ENCOUNTER 2022-03-16 08:55 | Emergency (ER) | payer OTHER ==
[2022-03-16 09:05] VITALS: TEMP 98.7; BMI 33.3
[2022-03-16] MEDS ORDERED: BEBTELOVIMAB (EUA) 175 MG/2 ML VIAL IVPUSH ONE (09:32)
[2022-03-16 11:27] VITALS: BP 120/77; PULSE 88
== END 2022-03-16 11:27 | disposition home or self-care (01) ==
LOC: JER 08:55
DX: U07.1 COVID-19 (principal)
CPT/HCPCS: 99283-25; M0222; Q0222

== ENCOUNTER 2023-01-14 13:00 | Emergency (ER) | payer OTHER ==
[2023-01-14 13:10] VITALS: BP 142/87; PULSE 96; RESP 16; TEMP 98.4; BMI 30.1
[2023-01-14] MEDS ORDERED: FLUORESCEIN NA 1 EA STRIP OD ONE (13:45)
[2023-01-14] MEDS ORDERED: TETRACAINE 0.5% HCL 0.6ML DROPPER.BOTTLE OU ONE (13:45)
[2023-01-14] MEDS ORDERED: TETRACAINE 0.5% OPHTH SOLN 2 ML BOTTLE ONE (14:12)
[2023-01-14] MEDS ORDERED: FLUORESCEIN NA 1 EA STRIP ONE (14:12)
== END 2023-01-14 15:10 | disposition home or self-care (01) ==
LOC: JER 13:00
DX: H53.8 Other visual disturbances (principal); R42 Dizziness and giddiness; H04.89 Other disorders of lacrimal system; H11.89 Other specified disorders of conjunctiva
CPT/HCPCS: 99283-25

== ENCOUNTER 2023-03-07 15:41 | Emergency (ER) | payer OTHER ==
[2023-03-07 15:46] VITALS: RESP 16; BMI 31.4
[2023-03-07 17:25] LABS: EPI CELLS 10 /uL (0-25.1); HYALINE CASTS 0 /uL (0-3.1); PH,URINE 5.5 (5.0-8.0); URINE APPEARANCE CLEAR; URINE BACTERIA 80 /uL (0-1359); URINE BILIRUBIN NEGATIVE (NEGATIVE); URINE COLOR YELLOW; URINE GLUCOSE (UA) NEGATIVE (NEGATIVE); URINE KETONE NEGATIVE (NEGATIVE); URINE LEUK ESTERASE NEGATIVE (NEGATIVE); URINE NITRITE NEGATIVE (NEGATIVE); URINE PROTEIN NEGATIVE (NEGATIVE); URINE RBC 8 /uL (0-23.9); URINE UROBILINOGEN 0.2 mg/dL (0.2-1.0); URINE WBC 4 /uL (0-25.8)
[2023-03-07 17:28] LABS: BASO % 0.4 % (0-2.0); EOS % 0.7 % (0-4.5); HEMATOCRIT 41.9 % (32.4-45.2); HEMOGLOBIN 13.9 GM/dL (10.7-15.3); LYMPH % 11.1 % (8-40); MCH 25.9 pg (25.7-33.7); MCHC 33.2 g/dl (32.0-36.0); MEAN CELL VOLUME 77.9 fl (80-96); MEAN PLT VOLUME 6.9 fl (7.5-11.1); MONO % 5.9 % (3.8-10.2); NEUT % 81.9 % (42.8-82.8); PLATELET COUNT 289 10^3/uL (134-434); RBC 5.38 M/mm3 (3.60-5.2); RDW 14.4 % (11.6-15.6)
[2023-03-07 17:31] LABS: POTASSIUM 4.5 mmol/L (3.5-5.1)
[2023-03-07 17:33] LABS: ALBUMIN 3.7 g/dl (3.4-5.0); CALCIUM 9.2 mg/dL (8.5-10.1)
[2023-03-07 17:35] LABS: BLOOD UREA NITROGEN 15.8 mg/dL (7-18)
[2023-03-07 17:36] LABS: CREATININE 0.8 mg/dL (0.55-1.3)
[2023-03-07 17:38] LABS: BILIRUBIN,TOTAL 0.4 mg/dL (0.2-1); TOT PROT 6.9 g/dl (6.4-8.2)
[2023-03-07] MEDS ORDERED: PANTOPRAZOLE 40 MG TABLET PO ONE ×2 (19:06→19:14)
[2023-03-07] MEDS ORDERED: MAG HYDROX/ALH/SMC/DPHA/LIDO 240 ML MOUTHWASH MM SCH (19:25)
[2023-03-07 19:40] VITALS: BP 145/88; PULSE 81; TEMP 99
[2023-03-08] MEDS ORDERED: MAG HYDROX/ALH/SMC/DPHA/LIDO 240 ML MOUTHWASH MM SCH
== END 2023-03-07 20:10 | disposition home or self-care (01) ==
LOC: JER 15:41
DX: R10.13 Epigastric pain (principal); K52.9 Noninfective gastroenteritis and colitis, unspecified; K29.00 Acute gastritis without bleeding
CPT/HCPCS: 36415; 74177-TC; 80053; 81003; 82150; 83690; 85025; 87086; 99285-25; Q9967

== ENCOUNTER 2023-03-19 13:59 | Inpatient (IN) | payer OTHER ==
[2023-03-19] MEDS ORDERED: ACETAMINOPHEN 1000 MG/100 ML BAG IVPB ONE (14:58)
[2023-03-19] MEDS ORDERED: ACETAMINOPHEN INJECTION 100 ML IVPB ONE ×2 (15:21→20:44)
[2023-03-19 15:36] LABS: VENOUS BASE EXCESS -0.5 mmol/L (-2-2); VENOUS O2 SATURATION 80.8 % (70-80); VENOUS PCO2 29.4 mmHg (38-52); VENOUS PH 7.485 (7.310-7.410)
[2023-03-19 16:08] LABS: BASO % 0.3 % (0-2.0); EOS % 0.3 % (0-4.5); HEMATOCRIT 42.9 % (32.4-45.2); HEMOGLOBIN 14.3 GM/dL (10.7-15.3); LYMPH % 11.2 % (8-40); MCHC 33.3 g/dl (32.0-36.0); MEAN CELL VOLUME 78.2 fl (80-96); MEAN PLT VOLUME 7.5 fl (7.5-11.1); NEUT % 83.2 % (42.8-82.8); PLATELET COUNT 302 10^3/uL (134-434); RBC 5.49 M/mm3 (3.60-5.2); WHITE BLOOD COUNT 8.9 K/mm3 (4.0-10.0)
[2023-03-19 16:14] LABS: EPI CELLS 24 /uL (0-25.1); HYALINE CASTS 4 /uL (0-3.1); URINE APPEARANCE CLEAR; URINE BACTERIA 43 /uL (0-1359); URINE BILIRUBIN NEGATIVE (NEGATIVE); URINE COLOR DK YELLOW; URINE GLUCOSE (UA) NEGATIVE (NEGATIVE); URINE KETONE 1+ (NEGATIVE); URINE LEUK ESTERASE NEGATIVE (NEGATIVE); URINE NITRITE NEGATIVE (NEGATIVE); URINE PROTEIN TRACE (NEGATIVE); URINE RBC 77 /uL (0-23.9); URINE UROBILINOGEN 0.2 mg/dL (0.2-1.0); URINE WBC 11 /uL (0-25.8)
[2023-03-19 16:22] LABS: INR 1.06 (0.83-1.09); PROTHROMBIN TIME (PATIENT) 12.3 SEC (9.7-13.0)
[2023-03-19 16:24] LABS: ACTIVATED PTT 31.7 SECONDS (25.2-36.5)
[2023-03-19 16:32] LABS: POTASSIUM 4.2 mmol/L (3.5-5.1)
[2023-03-19 16:34] LABS: BLOOD UREA NITROGEN 14.7 mg/dL (7-18); CALCIUM 9.5 mg/dL (8.5-10.1)
[2023-03-19 16:37] LABS: CREATININE 0.8 mg/dL (0.55-1.3)
[2023-03-19 16:39] LABS: BILIRUBIN,TOTAL 0.8 mg/dL (0.2-1)
[2023-03-19] MEDS ORDERED: FAMOTIDINE 20 MG/50 ML IVPB 20 MG/50 ML MG IVPB ONE ×2 (17:31→17:40)
[2023-03-19] MEDS ORDERED: PIPERACILLIN/TAZOB 3.375 GM 3.375 GM in DEXTROSE 5%-WATER - 50 ML IVPB ONE (17:45)
[2023-03-19] MEDS ORDERED: PIPERACILLIN/TAZOB 3.375 GM 3.375 GM/50 ML BAG IVPB ONE (17:46)
[2023-03-19] MEDS: LACTATED RINGERS SOLUTION 1,000 ML/1,000 ML INFUS.BAG IV SCH (20:49)
[2023-03-19] MEDS: ACETAMINOPHEN 1000 MG/100 ML BAG IVPB PRN (20:50)
[2023-03-20] MEDS ORDERED: ACETAMINOPHEN INJECTION 100 ML IVPB ONE (02:11)
[2023-03-20] MEDS: ACETAMINOPHEN 1000 MG/100 ML BAG IVPB PRN (02:15)
[2023-03-20 06:22] LABS: HEMOGLOBIN 12.7 GM/dL (10.7-15.3); MCH 26.2 pg (25.7-33.7); MCHC 32.6 g/dl (32.0-36.0); MEAN CELL VOLUME 80.4 fl (80-96); MEAN PLT VOLUME 7.8 fl (7.5-11.1); PLATELET COUNT 254 10^3/uL (134-434); RBC 4.85 M/mm3 (3.60-5.2); RDW 14.1 % (11.6-15.6); WHITE BLOOD COUNT 7.2 K/mm3 (4.0-10.0)
[2023-03-20 06:44] LABS: POTASSIUM 4.5 mmol/L (3.5-5.1)
[2023-03-20 06:46] LABS: CALCIUM 8.9 mg/dL (8.5-10.1)
[2023-03-20 06:47] LABS: ALBUMIN 3.5 g/dl (3.4-5.0); BLOOD UREA NITROGEN 15.3 mg/dL (7-18); MAGNESIUM 2.1 mg/dL (1.8-2.4)
[2023-03-20 06:50] LABS: CREATININE 0.8 mg/dL (0.55-1.3); PHOSPHOROUS 4.4 mg/dL (2.5-4.9)
[2023-03-20 06:51] LABS: TOT PROT 6.1 g/dl (6.4-8.2)
[2023-03-20] MEDS ORDERED: ENOXAPARIN NA (PORCINE) 40 MG/0.4 ML DISP.SYRIN SQ ONE (09:46)
[2023-03-20] MEDS ORDERED: PANTOPRAZOLE SODIUM 40 MG VIAL ONE (09:47)
[2023-03-20] MEDS: ENOXAPARIN NA (PORCINE) 40 MG/0.4 ML DISP.SYRIN SQ SCH (09:58)
[2023-03-20] MEDS ORDERED: PANTOPRAZOLE SODIUM 40 MG VIAL IVPUSH SCH (10:00)
[2023-03-20] MEDS: VANCOMYCIN ORAL SOLUTION 125 MG/2.5 ML PO SCH ×2 (12:30→21:11)
[2023-03-20] MEDS ORDERED: BANATROL PLUS POWDER PACKET PO SCH (14:00)
[2023-03-20] MEDS: LACTATED RINGERS SOLUTION 1,000 ML/1,000 ML INFUS.BAG IV SCH (17:53)
[2023-03-20] MEDS: FAMOTIDINE 20 MG/50 ML IVPB 20 MG/50 ML MG IVPB SCH (21:11)
[2023-03-21] MEDS: VANCOMYCIN ORAL SOLUTION 125 MG/2.5 ML PO SCH ×2 (00:31→06:02)
[2023-03-21] MEDS: FAMOTIDINE 20 MG/50 ML IVPB 20 MG/50 ML MG IVPB SCH (09:40)
[2023-03-21] MEDS: ENOXAPARIN NA (PORCINE) 40 MG/0.4 ML DISP.SYRIN SQ SCH (09:51)
[2023-03-21 10:07] LABS: BASO % 0.6 % (0-2.0); EOS % 1.5 % (0-4.5); HEMATOCRIT 38.4 % (32.4-45.2); HEMOGLOBIN 12.7 GM/dL (10.7-15.3); LYMPH % 15.9 % (8-40); MCH 26.4 pg (25.7-33.7); MCHC 32.9 g/dl (32.0-36.0); MEAN CELL VOLUME 80.2 fl (80-96); MEAN PLT VOLUME 7.9 fl (7.5-11.1); MONO % 7.8 % (3.8-10.2); NEUT % 74.2 % (42.8-82.8); PLATELET COUNT 248 10^3/uL (134-434); RBC 4.79 M/mm3 (3.60-5.2); RDW 13.9 % (11.6-15.6); WHITE BLOOD COUNT 6.3 K/mm3 (4.0-10.0)
[2023-03-21 10:25] LABS: POTASSIUM 3.8 mmol/L (3.5-5.1)
[2023-03-21 10:31] LABS: CALCIUM 8.9 mg/dL (8.5-10.1)
[2023-03-21 10:32] LABS: ALBUMIN 3.4 g/dl (3.4-5.0); BLOOD UREA NITROGEN 9.8 mg/dL (7-18)
[2023-03-21 10:35] LABS: CREATININE 0.7 mg/dL (0.55-1.3)
[2023-03-21 10:36] LABS: BILIRUBIN,TOTAL 0.9 mg/dL (0.2-1)
[2023-03-21] MEDS: DICYCLOMINE HCL 10 MG CAPSULE PO SCH ×2 (12:54→21:55)
[2023-03-21] MEDS ORDERED: LOPERAMIDE HCL 2 MG CAPSULE PO ONE (14:00)
[2023-03-21] MEDS: LACTATED RINGERS SOLUTION 1,000 ML/1,000 ML INFUS.BAG IV SCH ×2 (14:11→18:14)
[2023-03-21] MEDS: LORazepam 0.5 MG TABLET PO PRN (21:55)
[2023-03-21] MEDS ORDERED: GABAPENTIN 100 MG CAPSULE PO SCH (22:00)
[2023-03-22] MEDS: DICYCLOMINE HCL 10 MG CAPSULE PO SCH ×3 (06:00→21:33)
[2023-03-22] MEDS: ENOXAPARIN NA (PORCINE) 40 MG/0.4 ML DISP.SYRIN SQ SCH (09:16)
[2023-03-22] MEDS: PANTOPRAZOLE 40 MG TABLET PO SCH (09:16)
[2023-03-22 09:58] LABS: HEMATOCRIT 38.1 % (32.4-45.2); HEMOGLOBIN 12.2 GM/dL (10.7-15.3); MCH 25.5 pg (25.7-33.7); MCHC 31.9 g/dl (32.0-36.0); MEAN PLT VOLUME 7.8 fl (7.5-11.1); PLATELET COUNT 243 10^3/uL (134-434); RBC 4.77 M/mm3 (3.60-5.2); RDW 13.6 % (11.6-15.6); WHITE BLOOD COUNT 5.8 K/mm3 (4.0-10.0)
[2023-03-22 10:11] LABS: POTASSIUM 3.9 mmol/L (3.5-5.1)
[2023-03-22 10:12] LABS: CALCIUM 8.8 mg/dL (8.5-10.1)
[2023-03-22 10:13] LABS: BLOOD UREA NITROGEN 6.2 mg/dL (7-18)
[2023-03-22 10:16] LABS: CREATININE 0.7 mg/dL (0.55-1.3)
[2023-03-23] MEDS ORDERED: MAG HYDROX/AL HYDROX/SIMETH 30 ML UNIT-DOSE CUP PO ONE (01:23)
[2023-03-23] MEDS: DICYCLOMINE HCL 10 MG CAPSULE PO SCH ×3 (05:07→22:25)
[2023-03-23 08:14] LABS: HEMATOCRIT 40.3 % (32.4-45.2); HEMOGLOBIN 12.8 GM/dL (10.7-15.3); MCH 25.6 pg (25.7-33.7); MCHC 31.8 g/dl (32.0-36.0); MEAN CELL VOLUME 80.5 fl (80-96); MEAN PLT VOLUME 7.6 fl (7.5-11.1); PLATELET COUNT 258 10^3/uL (134-434); RBC 5.01 M/mm3 (3.60-5.2); RDW 13.6 % (11.6-15.6); WHITE BLOOD COUNT 7.2 K/mm3 (4.0-10.0)
[2023-03-23 09:46] LABS: POTASSIUM 3.7 mmol/L (3.5-5.1)
[2023-03-23 09:50] LABS: BLOOD UREA NITROGEN 6.6 mg/dL (7-18); CALCIUM 8.8 mg/dL (8.5-10.1)
[2023-03-23 09:54] LABS: CREATININE 0.7 mg/dL (0.55-1.3)
[2023-03-23] MEDS: PANTOPRAZOLE 40 MG TABLET PO SCH (10:10)
[2023-03-23] MEDS: ENOXAPARIN NA (PORCINE) 40 MG/0.4 ML DISP.SYRIN SQ SCH (10:15)
[2023-03-23] MEDS: LORazepam 0.5 MG TABLET PO PRN (12:25)
[2023-03-24] MEDS: DICYCLOMINE HCL 10 MG CAPSULE PO SCH (05:47)
[2023-03-24] MEDS: PANTOPRAZOLE 40 MG TABLET PO SCH (09:13)
[2023-03-24] MEDS: OLANZapine 2.5 MG TABLET PO SCH (09:17)
[2023-03-24] MEDS: ENOXAPARIN NA (PORCINE) 40 MG/0.4 ML DISP.SYRIN SQ SCH (09:18)
[2023-03-25 09:37] LABS: HEMATOCRIT 39.5 % (32.4-45.2); MCH 26.2 pg (25.7-33.7); MCHC 32.9 g/dl (32.0-36.0); MEAN CELL VOLUME 79.7 fl (80-96); MEAN PLT VOLUME 7.8 fl (7.5-11.1); PLATELET COUNT 275 10^3/uL (134-434); RBC 4.95 M/mm3 (3.60-5.2)
[2023-03-25 10:04] LABS: CALCIUM 9.1 mg/dL (8.5-10.1)
[2023-03-25 10:06] LABS: BLOOD UREA NITROGEN 12.5 mg/dL (7-18)
[2023-03-25 10:08] LABS: CREATININE 0.7 mg/dL (0.55-1.3)
[2023-03-25] MEDS: ENOXAPARIN NA (PORCINE) 40 MG/0.4 ML DISP.SYRIN SQ SCH (10:35)
[2023-03-25] MEDS: PANTOPRAZOLE 40 MG TABLET PO SCH (10:36)
[2023-03-25] MEDS: OLANZapine 2.5 MG TABLET PO SCH (10:36)
[2023-03-25 12:21] LABS: POTASSIUM 3.9 mmol/L (3.5-5.1)
[2023-03-25 13:54] VITALS: RESP 18
[2023-03-25] MEDS ORDERED: OLANZapine 5 MG TABLET PO SCH (22:00)
[2023-03-26] MEDS: PANTOPRAZOLE 40 MG TABLET PO SCH (09:49)
[2023-03-26] MEDS: ENOXAPARIN NA (PORCINE) 40 MG/0.4 ML DISP.SYRIN SQ SCH (09:49)
[2023-03-26 10:08] LABS: HEMATOCRIT 40.8 % (32.4-45.2); HEMOGLOBIN 13.4 GM/dL (10.7-15.3); MCH 26.3 pg (25.7-33.7); MCHC 32.7 g/dl (32.0-36.0); MEAN CELL VOLUME 80.4 fl (80-96); MEAN PLT VOLUME 7.9 fl (7.5-11.1); PLATELET COUNT 262 10^3/uL (134-434); RBC 5.08 M/mm3 (3.60-5.2); RDW 14.5 % (11.6-15.6); WHITE BLOOD COUNT 7.1 K/mm3 (4.0-10.0)
[2023-03-26 10:37] LABS: POTASSIUM 3.7 mmol/L (3.5-5.1)
[2023-03-26 10:49] LABS: BLOOD UREA NITROGEN 16.3 mg/dL (7-18); CALCIUM 9.2 mg/dL (8.5-10.1)
[2023-03-26 10:51] LABS: CREATININE 0.8 mg/dL (0.55-1.3)
[2023-03-26 13:39] VITALS: BP 130/72; PULSE 87; TEMP 99.1
[2023-03-26 15:08] VITALS: BMI 30.5
== END 2023-03-26 19:34 | disposition home or self-care (01) | DRG 392 ==
LOC: JER 13:59 → JERBED 17:42 → J6S 03-20 18:26
PROVIDERS: ADMIT Internal Medicine; ATTEND Internal Medicine
DX: K52.9 Noninfective gastroenteritis and colitis, unspecified (principal); K86.0 Alcohol-induced chronic pancreatitis; R10.84 Generalized abdominal pain; F20.9 Schizophrenia, unspecified; G24.01 Drug induced subacute dyskinesia; M79.7 Fibromyalgia; I10 Essential (primary) hypertension; E11.9 Type 2 diabetes mellitus without complications; E78.5 Hyperlipidemia, unspecified; J45.909 Unspecified asthma, uncomplicated; K76.0 Fatty (change of) liver, not elsewhere classified; K21.9 Gastro-esophageal reflux disease without esophagitis; R31.9 Hematuria, unspecified
CPT/HCPCS: 36415; 74177-TC; 80048; 80053; 81003; 82803; 83605; 83690; 83735; 84100; 85025; 85027; 85610; 85730; 86140; 87040; 87045; 87046; 87086; 87205; 87209; 87324; 87329; 87449; 87798; 93005; 93010; 99285-25; Q9967

== ENCOUNTER 2023-09-20 11:10 | Emergency (ER) | payer OTHER ==
[2023-09-20 11:38] VITALS: BP 163/82; PULSE 89; RESP 20; TEMP 99.1; BMI 34.7
[2023-09-20] MEDS ORDERED: ACETAMINOPHEN 1000 MG/100 ML BAG IVPB ONE (12:39)
[2023-09-20] MEDS ORDERED: ACETAMINOPHEN INJECTION 100 ML IVPB ONE (13:04)
[2023-09-20 13:19] LABS: BASO % 0.7 % (0-2.0); EOS % 1.6 % (0-4.5); HEMATOCRIT 40.1 % (32.4-45.2); LYMPH % 12.1 % (8-40); MCH 25.7 pg (25.7-33.7); MCHC 32.5 g/dl (32.0-36.0); MEAN CELL VOLUME 79.1 fl (80-96); MEAN PLT VOLUME 6.8 fl (7.5-11.1); NEUT % 78.6 % (42.8-82.8); PLATELET COUNT 226 10^3/uL (134-434); RBC 5.08 M/mm3 (3.60-5.2); RDW 15.2 % (11.6-15.6); WHITE BLOOD COUNT 6.8 K/mm3 (4.0-10.0)
[2023-09-20 13:27] LABS: INR 1.02 (0.83-1.09); PROTHROMBIN TIME (PATIENT) 11.8 SEC (9.7-13.0)
[2023-09-20 13:30] LABS: ACTIVATED PTT 30.4 SECONDS (25.2-36.5)
[2023-09-20 13:36] LABS: POTASSIUM 4.1 mmol/L (3.5-5.1)
[2023-09-20 13:38] LABS: ALBUMIN 3.5 g/dl (3.4-5.0); BLOOD UREA NITROGEN 17.7 mg/dL (7-18); CALCIUM 8.4 mg/dL (8.5-10.1)
[2023-09-20 13:41] LABS: CREATININE 0.8 mg/dL (0.55-1.3)
[2023-09-20 13:43] LABS: BILIRUBIN,TOTAL 0.4 mg/dL (0.2-1); TOT PROT 6.5 g/dl (6.4-8.2)
[2023-09-20 14:00] LABS: ERYTHROCYTE SEDIMENTATION RATE 8 mm/hr (0-30)
== END 2023-09-20 14:49 | disposition home or self-care (01) ==
LOC: JER 11:10
PROC: 3E033NZ Introduction of Analgesics, Hypnotics, Sedatives into Peripheral Vein, Percutaneous Approach (ICD-10-PCS; principal; 2023-09-20)
DX: M25.562 Pain in left knee (principal); R21 Rash and other nonspecific skin eruption; L03.116 Cellulitis of left lower limb
CPT/HCPCS: 36415; 73562-TC-LT-FY; 73590-TC-LT-FY; 80053; 85025; 85610; 85651; 85730; 86140; 99284-25

== ENCOUNTER 2023-10-24 04:57 | Day surgery (SDC) | payer OTHER ==
[2023-10-21 17:00] VITALS: BMI 34.7
[2023-10-24] MEDS ORDERED: BUPIVACAINE HCL/PF 0.5% (5MG/ML) 10 ML VIAL ONE (07:20)
[2023-10-24] MEDS ORDERED: LIDOCAINE HCL/PF 1% SDV 5ML VIAL ONE (07:20)
[2023-10-24] MEDS ORDERED: TRIAMCINOLONE ACET 40MG/1ML VIAL ONE (07:20)
[2023-10-24] MEDS: BUPIVACAINE HCL/PF 0.5% (5MG/ML) 10 ML VIAL IJ ONE (09:01)
[2023-10-24] MEDS: TRIAMCINOLONE ACETONIDE 40 MG/ML 10 ML VIAL IJ ONE ×2 (09:01→09:04)
[2023-10-24] MEDS: IOHEXOL 180 MG/1 ML ML IJ ONE (09:02)
[2023-10-24] MEDS: LIDOCAINE 1% P/F 10 MG/ML VIAL INF ONE (09:02)
[2023-10-24 09:36] VITALS: TEMP 98
[2023-10-24 09:52] VITALS: BP 135/78; PULSE 80; RESP 20
[2023-10-24] MEDS ORDERED: ACETAMINOPHEN 500 MG TABLET (FP) PO PRN (13:05)
== END 2023-10-24 10:00 | disposition home or self-care (01) ==
LOC: JASU-SURG 04:57
PROVIDERS: ATTEND Pain Medicine Pain Medicine
PROC: 3E023BZ Introduction of Anesthetic Agent into Muscle, Percutaneous Approach (ICD-10-PCS; 2023-10-24)
PROC: 3E0233Z Introduction of Anti-inflammatory into Muscle, Percutaneous Approach (ICD-10-PCS; principal; 2023-10-24 08:45)
DX: M16.12 Unilateral primary osteoarthritis, left hip (principal)
CPT/HCPCS: 76000-TC-FY

== ENCOUNTER 2024-02-26 13:40 | Emergency (ER) | payer OTHER ==
[2024-02-26 13:51] VITALS: BMI 38.4
[2024-02-26] MEDS ORDERED: morphine SULFATE 4 MG/ML VIAL ONE (15:32)
[2024-02-26 15:33] LABS: BASO % 0.6 % (0-2.0); EOS % 3.2 % (0-4.5); HEMATOCRIT 37.4 % (32.4-45.2); HEMOGLOBIN 12.2 GM/dL (10.7-15.3); LYMPH % 15.1 % (8-40); MCH 25.5 pg (25.7-33.7); MCHC 32.7 g/dl (32.0-36.0); MEAN CELL VOLUME 78.2 fl (80-96); MEAN PLT VOLUME 6.7 fl (7.5-11.1); MONO % 5.2 % (3.8-10.2); NEUT % 75.9 % (42.8-82.8); PLATELET COUNT 282 10^3/uL (134-434); RBC 4.78 M/mm3 (3.60-5.2); RDW 15.6 % (11.6-15.6); WHITE BLOOD COUNT 8.3 K/mm3 (4.0-10.0)
[2024-02-26] MEDS: morphine CARPU-JECT 4 MG/1 ML DISP.SYRIN IVPUSH ONE (15:36)
[2024-02-26 15:39] LABS: INR 0.94 (0.83-1.09); PROTHROMBIN TIME (PATIENT) 10.8 SEC (9.7-13.0)
[2024-02-26 15:41] LABS: ACTIVATED PTT 33.4 SECONDS (25.2-36.5)
[2024-02-26 15:58] LABS: POTASSIUM 4.2 mmol/L (3.5-5.1)
[2024-02-26 16:01] LABS: ALBUMIN 3.5 g/dl (3.4-5.0); BLOOD UREA NITROGEN 21.7 mg/dL (7-18)
[2024-02-26 16:04] LABS: CREATININE 0.8 mg/dL (0.55-1.3)
[2024-02-26 16:05] LABS: BILIRUBIN,TOTAL 0.3 mg/dL (0.2-1); TOT PROT 6.4 g/dl (6.4-8.2)
[2024-02-26 17:13] LABS: PH,URINE 5.5 (5.0-8.0); URINE APPEARANCE CLEAR; URINE BILIRUBIN NEGATIVE (NEGATIVE); URINE COLOR YELLOW; URINE GLUCOSE (UA) NEGATIVE (NEGATIVE); URINE KETONE NEGATIVE (NEGATIVE); URINE LEUK ESTERASE NEGATIVE (NEGATIVE); URINE NITRITE NEGATIVE (NEGATIVE); URINE PROTEIN NEGATIVE (NEGATIVE); URINE UROBILINOGEN 0.2 mg/dL (0.2-1.0)
[2024-02-26 19:44] VITALS: PULSE 90; RESP 18
[2024-02-26] MEDS ORDERED: KETOROLAC TROMETHAMINE 30 MG/1 ML VIAL ONE (20:23)
[2024-02-26] MEDS: KETOROLAC TROMETHAMINE 30 MG/1 ML VIAL IVPUSH ONE (20:28)
[2024-02-26] MEDS: ACETAMINOPHEN 1000 MG/100 ML BAG IVPB ONE (20:28)
[2024-02-26 21:10] VITALS: BP 125/81; TEMP 98.2
== END 2024-02-26 21:43 | disposition home or self-care (01) ==
LOC: JER 13:40
PROC: 3E033NZ Introduction of Analgesics, Hypnotics, Sedatives into Peripheral Vein, Percutaneous Approach (ICD-10-PCS; principal; 2024-02-26)
PROC: 3E0333Z Introduction of Anti-inflammatory into Peripheral Vein, Percutaneous Approach (ICD-10-PCS; 2024-02-26)
PROC: 3E033NZ Introduction of Analgesics, Hypnotics, Sedatives into Peripheral Vein, Percutaneous Approach (ICD-10-PCS; 2024-02-26)
DX: M54.50 Low back pain, unspecified (principal); G89.29 Other chronic pain; R32 Unspecified urinary incontinence; R15.9 Full incontinence of feces
CPT/HCPCS: 36415; 72148-TC; 80053; 81003; 85025; 85610; 85730; 86850; 86900; 86901; 87086; 87186; 93005; 93010; 99285-25; J0131